=== PATIENT | female | born 1945 | race Caucasian/White ===

== ENCOUNTER 2017-06-18 18:54 | Inpatient (IN) | payer MEDICARE, OTHER ==
[2017-06-18] VITALS (7 sets, daily range): BP systolic 115–161; BP diastolic 60–79; PULSE 75–109; RESP 18–30; TEMP 97.1–97.8; O2SAT 82–98
[~2017-06-18] VITALS: Ht 158.8 cm; Wt 72.2 kg
[2017-06-18] MEDS ORDERED: AMLO10 PO (19:33)
[2017-06-18] MEDS ORDERED: OMEGCAP PO (19:33)
[2017-06-18] MEDS ORDERED: LOSA100T PO (19:33)
[2017-06-18] MEDS ORDERED: VITA1000 PO (19:33)
[2017-06-18] MEDS ORDERED: TIOT1AER INH (19:33)
[2017-06-18] MEDS ORDERED: SIMV20TA PO (19:33)
[2017-06-18] MEDS ORDERED: GREE250C2 (19:33)
[2017-06-18] MEDS ORDERED: METO50TA PO (19:33)
[2017-06-18] MEDS ORDERED: CALC600T25 (19:33)
[2017-06-18] MEDS ORDERED: ASPI81CH CHEW (19:33)
--- NOTE | 2017-06-18 19:40 | PD ---
HPI Chief Complaint: Respiratory Distress Time Seen by Provider: 19:34 Travel History International Travel<30 days: No Contact w/Intl Traveler<30days: No Traveled to known affect area: No History of Present Illness HPI The patient is a 72 year old female who presents to the [facility] emergency department with a history of increased shortness of breath for the last 2 weeks. The patient reports that she does have a history of COPD, however her dyspnea on exertion has been greatly worsened recently. She reports that she has an appointment with her cobol engineer scheduled for tomorrow, however she could not wait for the appointment. She reports that she does check her pulse oximetry at home and with walking across the room her O2 saturation went down as low as 82%. On arrival to this facility by private vehicle patient was noted on triage to have O2 saturations of 86-88% on room air. She denies using any home O2. The patient reports that she quit smoking 12 years ago. She reports that her primary care physician is Dr. Clark. She reports that she's had an increased cough, however it is dry in character. She denies having any fevers or chills associated with this. She denies having any chest pain or pressure, however she reports having tightness in her chest when she tries to take a deep breath. She denies any prior history of congestive heart failure or coronary artery disease. She denies ever having a stress test done previously. On review of systems otherwise, the patient denies any neck pain, abdominal pain, vomiting, diarrhea, urinary symptoms, or neurologic symptoms. [facility] Past Medical History Narrative Medical The patient's past medical history is significant for hypertension, hyperlipidemia, COPD. Past Surgical History Narrative Surgical The patient's past surgical history is significant for an appendectomy, eye surgery. Social History Alcohol Use: No Tobacco Use: No Substance Use: No Allergies-Medications (Allergen,Severity, Reaction): Coded Allergies: No Known Allergies (Unverified , 06/18/17) Reported Meds & Prescriptions Reported Meds & Active Scripts Active Reported Stiolto Respimat Inh (Tiotropium-Olodaterol Inh) 2.5-2.5 Mcg/Act Aero 2 Puff INH DAILY Green Tea (Green Tea Mcconnico Extract) 250 Mg Capsule 500 BID Vitamin D-1000 (Cholecalciferol) 1,000 Unit Tab 2,000 Units PO DAILY [place]-3 Fish Oil/Vitamin (Fish Oil-Cholecalciferol) 1,000-1,000 Mg Cap 1 Cap PO DAILY Calcium (Calcium Carbonate) 600 Mg Calcium (1500 Mg) Tab BID Aspirin 81 Mg Chew 81 Mg CHEW HS Metoprolol Tartrate 50 Mg Tab 50 Mg PO DAILY Norvasc (Amlodipine Besylate) 10 Mg Tab 10 Mg PO HS Simvastatin 20 Mg Tab 20 Mg PO DAILY Losartan (Losartan Potassium) 100 Mg Tab 100 Mg PO DAILY Review of Systems Except as stated in HPI: all other systems reviewed are Neg General / Constitutional: No: Fever Eyes: No: Visual changes HENT: No: Headaches Cardiovascular: Positive: Chest Pain or Discomfort (chest tightness), Dyspnea on exertion Respiratory: Positive: Cough, Shortness of Breath, Wheezing Gastrointestinal: No: Nausea, Vomiting, Diarrhea, Abdominal Pain Genitourinary: No: Dysuria Musculoskeletal: No: Pain Skin: No Rash Neurologic: No: Weakness, Focal Abnormalities, Change in Mentation, Slurred Speech, Sensory Disturbance Psychiatric: No: Depression Endocrine: No: Polydipsia Hematologic/Lymphatic: No: Easy Bruising Physical Exam Narrative General: The patient is a well-developed well-nourished female in no acute distress. The patient is currently on 2 L nasal cannula O2 and saturating 96%. Head and Neck exam: Head is normocephalic atraumatic. Eyes: EOMI, pupils are equal round and reactive to light. Nose: Midline septum with pink mucous membranes Mouth: Dentition unremarkable. Moist mucus membranes. Posterior oropharynx is not erythematous. No tonsillar hypertrophy. Uvula midline. Airway patent. Neck: No palpable lymphadenopathy. No nuchal rigidity. No thyromegaly. Cardiovascular: Regular rate and rhythm without murmurs, gallops, or rubs. Lungs: The patient has decreased breath sounds bilaterally with crackles audible in the right lower lung base. No wheezes or rhonchi audible. Abdomen: Soft, without tenderness to palpation in all 4 quadrants of the abdomen. No guarding, rebound, or rigidity. Normal bowel sounds are audible. No tenderness on palpation of McBurney's point. Extremities: No clubbing, cyanosis, or edema. 2+ pulses in all 4 extremities. No calf tenderness on palpation. Back: No spinous process tenderness to palpation. No costovertebral angle tenderness to palpation. Neurologic Exam: Grossly nonfocal. Skin Exam: No rash noted. Intact skin that is warm and dry. Data Data Last Documented VS Vital Signs Date Time Temp Pulse Resp B/P (MAP) Pulse Ox O2 Delivery O2 Flow Rate FiO2 06/18/17 19:48 95 Nasal Cannula 2.00 06/18/17 19:43 97.8 75 30 143/60 (87) Orders Orders Complete Blood Count With Diff (06/18/17 19:34) Comprehensive Metabolic Panel (06/18/17 19:34) B-Type Natriuretic Peptide (06/18/17 19:34) Act Partial Throm Time (Ptt) (06/18/17 19:34) Prothrombin Time / Inr (Pt) (06/18/17 19:34) Magnesium (Mg) (06/18/17 19:34) Ckmb (Isoenzyme) Profile (06/18/17 19:34) Troponin I (06/18/17 19:34) Urinalysis - C+S If Indicated (06/18/17 19:34) Iv Access Insert/Monitor (06/18/17 19:34) Electrocardiogram (06/18/17 19:34) Ecg Monitoring (06/18/17 19:34) Oximetry (06/18/17 19:34) Oxygen Administration (06/18/17 19:34) Chest, Single Ap (06/18/17 19:34) Sodium Chloride 0.9% Flush (Ns Flush) (06/18/17 19:45) Methylprednisolone So Succ Inj (Solumedr (06/18/17 19:45) Albuterol-Ipratropium Neb (Duoneb Neb) (06/18/17 19:45) Blood Culture (06/18/17 19:40) D-Dimer (06/18/17 19:40) Lactic Acid Sepsis Protocol (06/18/17 19:40) Admit Order (Ed Use Only) (06/18/17 21:11) Labs Laboratory Tests Test 06/18/17 19:35 06/18/17 19:55 White Blood Count 10.0 TH/MM3 Red Blood Count 5.09 MIL/MM3 Hemoglobin 15.5 GM/DL Hematocrit 46.3 % Mean Corpuscular Volume 90.9 FL Mean Corpuscular Hemoglobin 30.4 PG Mean Corpuscular Hemoglobin Concent 33.4 % Red Cell Distribution Width 13.4 % Platelet Count 251 TH/MM3 Mean Platelet Volume 8.6 FL Neutrophils (%) (Auto) 78.4 % Lymphocytes (%) (Auto) 9.7 % Monocytes (%) (Auto) 9.1 % Eosinophils (%) (Auto) 2.5 % Basophils (%) (Auto) 0.3 % Neutrophils # (Auto) 7.8 TH/MM3 Lymphocytes # (Auto) 1.0 TH/MM3 Monocytes # (Auto) 0.9 TH/MM3 Eosinophils # (Auto) 0.2 TH/MM3 Basophils # (Auto) 0.0 TH/MM3 CBC Comment DIFF FINAL Differential Comment Prothrombin Time 10.5 SEC Prothromb Time International Ratio 1.0 RATIO Activated Partial Thromboplast Time 28.8 SEC D-Dimer Quantitative (PE/DVT) 0.31 MG/L FEU Blood Urea Nitrogen 21 MG/DL Creatinine 1.14 MG/DL Random Glucose 104 MG/DL Total Protein 8.9 GM/DL Albumin 4.1 GM/DL Calcium Level 11.2 MG/DL Magnesium Level 1.4 MG/DL Alkaline Phosphatase 89 U/L Aspartate Amino Transf (AST/SGOT) 19 U/L Alanine Aminotransferase (ALT/SGPT) 19 U/L Total Bilirubin 0.5 MG/DL Sodium Level 135 MEQ/L Potassium Level 3.9 MEQ/L Chloride Level 94 MEQ/L Carbon Dioxide Level 33.0 MEQ/L Anion Gap 8 MEQ/L Estimat Glomerular Filtration Rate 47 ML/MIN Total Creatine Kinase 80 U/L Troponin I LESS THAN 0.02 NG/ML B-Type Natriuretic Peptide 11 PG/ML Lactic Acid Level 1.2 mmol/L MDM Medical Decision Making Medical Screen Exam Complete: Yes Emergency Medical Condition: Yes Medical Record Reviewed: Yes Interpretation(s) Last Impressions Chest X-Ray 06/18/171933 Signed Impressions: Service Date/Time: Sunday, June 18, 2017 19:39 - CONCLUSION: No evidence of acute cardiopulmonary disease. Edgard Cruz MD Differential Diagnosis COPD exacerbation, versus new-onset congestive heart failure, versus acute coronary syndrome, versus pulmonary embolism Narrative Course During the course of the patients emergency department visit, the patients history, examination, and differential diagnosis were reviewed with the patient. The patient had IV access obtained and blood work sent for analysis. The patient was on a quality assurance monitor chassis with oximetry and blood pressure monitoring. An ECG was done on arrival. The patient's ECG reveals a sinus rhythm heart rate of 85, no acute ST segment elevation or depression, QRS duration is 89 ms, QTC 391 ms. The patient was initially provided Solu-Medrol 125 mg IV, DuoNeb 2. The patients laboratory studies were reviewed and remarkable for a white count of 10, hemoglobin 15.5, platelets 251 with neutrophils 78.4, monocytes 9.1, CMP is remarkable for sodium of 135, CO2 33, BUN 21, creatinine 1.14, calcium 11.2, magnesium 1.4, CPK 80, troponin I less than 0.02, BNP is 11, PT PTT within normal limits, d-dimer 0.31 decreased the likelihood of pulmonary embolism in this patient with no other significant risk factors. Radiology studies were reviewed and remarkable for a chest x-ray that shows no evidence of acute cardiopulmonary disease. The patients results were discussed with the patient, including the plan of care. I explained that further testing and/ or monitoring is indicated based on the patients history, examination, and/ or laboratory findings. Therefore, I recommended admission for additional evaluation. The patient expressed understanding and was agreeable with this plan. The patient was admitted to the hospital in stable condition and sent to a bed under the care of the [facility]. Physician Communication Physician Communication The patient's case was discussed with Edgard Baeza who did agree to admit the patient to the [facility] group Diagnosis Primary Impression: COPD exacerbation Additional Impression: Hypoxemia Admitting Information Admitting Physician Requests: Admit Addis Malave MD Jun 18, 2017 19:40
[2017-06-18] MEDS: RESP: ALBUTEROL 2.5 MG/IPRATROPIUM 0.5 MG NEB (SCH) INH (19:44)
[2017-06-18] MEDS ORDERED: SODIUM CHLORIDE 0.9% FLUSH 10 ML FLUSH IVF PRN (19:45)
[2017-06-18] MEDS ORDERED: methylPREDNISolone SOD SUCC 125 MG/2 ML VIAL IV PUSH ONE (19:45)
--- NOTE | 2017-06-18 20:05 | RADRPT ---
EXAM DATE/TIME: 06/18/2017 19:39 [place] COMPARISON: No previous studies available for comparison. INDICATIONS : Shortness of breath. MEDICAL HISTORY : Chronic obstructive pulmonary disease. SURGICAL HISTORY : None. ENCOUNTER: Initial ACUITY: 1 day PAIN SCORE: 0/10 LOCATION: Bilateral chest FINDINGS: A single view of the chest demonstrates the lungs to be symmetrically aerated without evidence of mas s, infiltrate or effusion. The cardiomediastinal contours are unremarkable. Osseous structures are intact. CONCLUSION: No evidence of acute cardiopulmonary disease. Edgard Cruz MD on June 18, 2017 at 20:03 Board Certified Radiologist. This report was verified electronically.
[2017-06-18 20:16] LABS: AUTOMATED NEUTROPHIL # 7.8 TH/MM3 (1.8-7.7); BASOPHIL % 0.3 % (0.0-2.0); EOSINOPHIL # 0.2 TH/MM3 (0-0.4); EOSINOPHIL % 2.5 % (0.0-4.0); HEMATOCRIT 46.3 % (35.0-46.0); HEMO FLAGS DIFF FINAL; LYMPH % 9.7 % (9.0-44.0); MEAN CELL VOLUME 90.9 FL (80.0-100.0); MEAN CORPUSCULAR HEMOGLOBIN 30.4 PG (27.0-34.0); MEAN CORPUSCULAR HGB CONC 33.4 % (32.0-36.0); MONO % 9.1 % (0.0-8.0); NEUT % 78.4 % (16.0-70.0); PLATELET COUNT 251 TH/MM3 (150-450); RED BLOOD COUNT 5.09 MIL/MM3 (4.00-5.30); RED CELL DISTRIBUTION WIDTH 13.4 % (11.6-17.2)
[2017-06-18 20:26] LABS: APTT (PATIENT) 28.8 SEC (24.3-30.1); PROTHROMBIN TIME - PATIENT 10.5 SEC (9.8-11.6)
[2017-06-18 20:39] LABS: ALT (GPT) 19 U/L (10-53); ANION GAP 8 MEQ/L (5-15); AST (GOT) 19 U/L (15-37); CHLORIDE 94 MEQ/L (98-107); GLOMERULAR FILTRATION RATE 47 ML/MIN (>89); MAGNESIUM 1.4 MG/DL (1.5-2.5); POTASSIUM 3.9 MEQ/L (3.5-5.1); SODIUM (NA) 135 MEQ/L (136-145)
[2017-06-18 20:46] LABS: ALKALINE PHOSPHATASE 89 U/L (45-117); BLOOD UREA NITROGEN 21 MG/DL (7-18); TOTAL BILIRUBIN ADULT 0.5 MG/DL (0.2-1.0)
[2017-06-18 20:50] LABS: CREATINE KINASE 80 U/L (26-192)
[2017-06-18] MEDS ORDERED: SODIUM CHLORIDE 0.9% FLUSH 10 ML FLUSH IV FLUSH PRN (22:15)
[2017-06-18] MEDS ORDERED: RESP: ALBUTEROL 2.5 MG/3 ML NEB (PRN) INH (22:15)
[2017-06-18] MEDS: SODIUM CHLOR 0.9% 1000 ML INJ 1,000 ML IV SCH (22:30)
[2017-06-18] MEDS: HEPARIN SODIUM - SQ 10,000 UNITS/ML VIAL SQ SCH (23:15)
[2017-06-18] MEDS: MAGNESIUM SULFATE 1 GM PREMIX 100 ML IV SCH ×2 (23:16→23:30)
[2017-06-18] MEDS ORDERED: ZOLPIDEM TARTRATE 5 MG TAB PO PRN (23:30)
[2017-06-19] VITALS (8 sets, daily range): BP systolic 107–119; BP diastolic 58–65; PULSE 78–107; RESP 16–22; TEMP 96.1–98; O2SAT 94–98
[2017-06-19] MEDS: ENALAPRIL MALEATE 5 MG TAB PO SCH ×2 (00:02→08:34)
[2017-06-19] MEDS: methylPREDNISolone SOD SUCC 125 MG/2 ML VIAL IV PUSH SCH ×4 (02:01→20:08)
[2017-06-19] MEDS: RESP: ALBUTEROL 2.5 MG/IPRATROPIUM 0.5 MG NEB (SCH) INH ×4 (03:42→21:12)
[2017-06-19 07:07] LABS: BICARBONATE 30.7 MEQ/L (21.0-32.0); MAGNESIUM 1.9 MG/DL (1.5-2.5); POTASSIUM 4.1 MEQ/L (3.5-5.1)
--- NOTE | 2017-06-19 07:41 | EKG ---
Date Performed: 06/18/2017 Time Performed: 19:32:13 PTAGE: 72 years EKG: Sinus rhythm POSSIBLE RIGHT ATRIAL ENLARGEMENT BORDERLINE ECG PREVIOUS TRACING : 06/18/2017 19.31 - not provided for review DOCTOR: Beverly Hines Interpretating Date/Time 06/19/2017 07:39:18
[2017-06-19] MEDS: FAMOTIDINE 20 MG TAB PO SCH ×2 (08:33→20:06)
[2017-06-19] MEDS: SODIUM CHLORIDE 0.9% FLUSH 10 ML FLUSH IV FLUSH SCH ×2 (08:41→20:06)
[2017-06-19] MEDS: SODIUM CHLOR 0.9% 1000 ML INJ 1,000 ML IV SCH ×2 (08:41→22:18)
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
[2017-06-19] MEDS ORDERED: INFLUENZA VIRUS VACCINE (QUADRIVALENT) 0.5 ML SYR IM ONE (09:00)
[2017-06-19] MEDS ORDERED: MAGNESIUM HYDROXIDE SUSP 30 ML CUP PO PRN (09:45)
[2017-06-19] MEDS: DOCUSATE SODIUM 50 MG/SENNA 8.6 MG TAB PO SCH (10:45)
[2017-06-19] MEDS ORDERED: BISACODYL 10 MG SUPP RECTAL ONE (10:45)
[2017-06-19] MEDS: HEPARIN SODIUM - SQ 10,000 UNITS/ML VIAL SQ SCH ×2 (11:19→23:45)
--- NOTE | 2017-06-19 16:53 | HHI.PR ---
Subjective Interval History Alert, oriented, breathing better, no pain, mild dyspnea on exertion, mild cough , no fever, no sputum Review of Systems Constitutional Constitutional Remarks 10 systems reviewed and negative except for the above Vitals/Results Intake & Output 06/19/17 06/19/17 06/20/17 15:00 23:00 07:00 Intake Total 820 ml 350 ml Balance 820 ml 350 ml Intake Oral 820 ml IV Total 350 ml # Voids 6 # Bowel Movements 2 Vital Signs Vital Signs Date Time Temp Pulse Resp B/P (MAP) Pulse Ox O2 Delivery O2 Flow Rate FiO2 06/19/17 16:30 96.7 107 22 116/58 (77) 95 06/19/17 11:32 96.1 100 18 107/59 (75) 95 06/19/17 08:02 97 Nasal Cannula 2.00 06/19/17 08:00 96.5 99 18 108/60 (76) 96 06/19/17 04:00 97.0 96 18 110/59 (76) 94 06/18/17 23:00 97.1 94 18 115/61 (79) 97 06/18/17 22:32 06/18/17 21:42 102 20 135/69 (91) 96 Nasal Cannula 2.00 06/18/17 19:48 95 Nasal Cannula 2.00 06/18/17 19:43 97.8 75 30 143/60 (87) 98 Nasal Cannula 2.00 06/18/17 19:39 30 98 2.00 06/18/17 19:39 99 Nasal Cannula 2.00 06/18/17 19:22 97 20 141/64 (89) 98 06/18/17 18:56 97.8 109 24 161/79 (106) 82 Room Air CBC/BMP: 06/18/17 1935 06/19/17 0602 Lab Results Laboratory Tests Test 06/18/17 19:35 06/18/17 19:55 06/19/17 06:02 White Blood Count 10.0 TH/MM3 Red Blood Count 5.09 MIL/MM3 Hemoglobin 15.5 GM/DL Hematocrit 46.3 % Mean Corpuscular Volume 90.9 FL Mean Corpuscular Hemoglobin 30.4 PG Mean Corpuscular Hemoglobin Concent 33.4 % Red Cell Distribution Width 13.4 % Platelet Count 251 TH/MM3 Mean Platelet Volume 8.6 FL Neutrophils (%) (Auto) 78.4 % Lymphocytes (%) (Auto) 9.7 % Monocytes (%) (Auto) 9.1 % Eosinophils (%) (Auto) 2.5 % Basophils (%) (Auto) 0.3 % Neutrophils # (Auto) 7.8 TH/MM3 Lymphocytes # (Auto) 1.0 TH/MM3 Monocytes # (Auto) 0.9 TH/MM3 Eosinophils # (Auto) 0.2 TH/MM3 Basophils # (Auto) 0.0 TH/MM3 CBC Comment DIFF FINAL Differential Comment Prothrombin Time 10.5 SEC Prothromb Time International Ratio 1.0 RATIO Activated Partial Thromboplast Time 28.8 SEC D-Dimer Quantitative (PE/DVT) 0.31 MG/L FEU Blood Urea Nitrogen 21 MG/DL 25 MG/DL Creatinine 1.14 MG/DL 0.99 MG/DL Random Glucose 104 MG/DL 152 MG/DL Total Protein 8.9 GM/DL Albumin 4.1 GM/DL Calcium Level 11.2 MG/DL 9.6 MG/DL Magnesium Level 1.4 MG/DL 1.9 MG/DL Alkaline Phosphatase 89 U/L Aspartate Amino Transf (AST/SGOT) 19 U/L Alanine Aminotransferase (ALT/SGPT) 19 U/L Total Bilirubin 0.5 MG/DL Sodium Level 135 MEQ/L 137 MEQ/L Potassium Level 3.9 MEQ/L 4.1 MEQ/L Chloride Level 94 MEQ/L 100 MEQ/L Carbon Dioxide Level 33.0 MEQ/L 30.7 MEQ/L Anion Gap 8 MEQ/L 6 MEQ/L Estimat Glomerular Filtration Rate 47 ML/MIN 55 ML/MIN Total Creatine Kinase 80 U/L Troponin I LESS THAN 0.02 NG/ML B-Type Natriuretic Peptide 11 PG/ML Lactic Acid Level 1.2 mmol/L Microbiology Microbiology 06/18/17 Aerobic Blood Culture - Preliminary, Resulted NO GROWTH IN 1 DAY 06/18/17 Anaerobic Blood Culture - Preliminary, Resulted NO GROWTH IN 1 DAY 06/18/17 Aerobic Blood Culture - Preliminary, Resulted NO GROWTH IN 1 DAY 06/18/17 Anaerobic Blood Culture - Preliminary, Resulted NO GROWTH IN 1 DAY Physical Exam General General Appearance: Well Developed, Well Nourished, Comfortable Eyes Eye Exam: Pupils Reactive Ears & Nose Ears & Nose Exam: Nasal Mucosa [place] Throat Throat Exam: Oral Mucosa [place] & Moist Neck Neck Exam: Trachea Midline Pulmonary Resp Exam: Breath Sounds Equal, Crackles, Rhonchi Cardiology CV Exam: Tachycardia CV Remarks sinus tachycardia Gastrointestinal/Abdomen GI Exam: Soft, Non-Tender, Bowel Sounds Present Musculoskeletal MS Exam: Normal Tone Neurologic Neuro Exam: Awake, Oriented, Speech Clear Psychiatric Psych Exam: Appropriate Responses VTE Prophylaxis VTE Prophylaxis Meds: Heparin Assessment/Plan Assessment/Plan Assessment COPD exacerbation Sinus tachycardia Uncontrolled hypertension on arrival, improving Hypomagnesemia Mild hyponatremia Hyperglycemia, unclear if related to steroids Acute kidney injury versus dehydration Borderline hypergammaglobulinemia Management Continue steroids Continue IV fluids Bronchodilators Telemetry Continue home medications Building Construction Contractor following Follow renal function Follow electrolytes Hemoglobin A1c DVT prophylaxis Possibly switch to oral steroids tomorrow Possible home tomorrow Discussed with patient Discussed with nurse 35 minutes IMPRESSION 1. COPD exacerbation. 2. Hypertension. 3. Hyperlipidemia. 4. Hyponatremia. 5. Chronic kidney disease, appears to be stage III. 6. Hypercalcemia. 7. Hypomagnesemia. Gordo Love MD Jun 19, 2017 16:53
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
[2017-06-20] VITALS (7 sets, daily range): BP systolic 101–121; BP diastolic 57–69; PULSE 88–110; RESP 16–18; TEMP 96.2–97.4; O2SAT 92–97
[2017-06-20] MEDS: methylPREDNISolone SOD SUCC 125 MG/2 ML VIAL IV PUSH SCH ×2 (02:26→08:36)
[2017-06-20] MEDS: RESP: ALBUTEROL 2.5 MG/IPRATROPIUM 0.5 MG NEB (SCH) INH ×4 (02:58→21:28)
[2017-06-20] MEDS: SODIUM CHLORIDE 0.9% FLUSH 10 ML FLUSH IV FLUSH SCH ×2 (08:36→20:57)
[2017-06-20] MEDS: DOCUSATE SODIUM 50 MG/SENNA 8.6 MG TAB PO SCH (08:44)
[2017-06-20] MEDS: FAMOTIDINE 20 MG TAB PO SCH ×2 (08:45→20:55)
[2017-06-20] MEDS: ENALAPRIL MALEATE 5 MG TAB PO SCH (08:48)
--- NOTE | 2017-06-20 10:55 | HHI.PR ---
Subjective Subjective Remarks up in shower alert, oriented No SOB HR 110 with increased activity Refused Vasotec according to med rec. (Angely Lu) Review of Systems Constitutional Constitutional Remarks 10 point ROS done SOB controlled. (Angely Lu) Vitals/Results Vital Signs Vital Signs Date Time Temp Pulse Resp B/P (MAP) Pulse Ox O2 Delivery O2 Flow Rate FiO2 06/20/17 07:26 96.2 110 18 121/69 (86) 92 06/20/17 03:01 95 Nasal Cannula 2.00 06/19/17 23:35 96.4 102 16 116/60 (78) 94 06/19/17 21:15 97 Nasal Cannula 2.00 06/19/17 20:45 98.0 78 16 119/65 (83) 98 06/19/17 16:30 96.7 107 22 116/58 (77) 95 06/19/17 11:32 96.1 100 18 107/59 (75) 95 (Angely Lu) CBC/BMP: 06/18/17193406/19/17 0602 Imaging Remarks Last Impressions Chest X-Ray 06/18/171933 Signed Impressions: Service Date/Time: Sunday, June 18, 2017 19:39 - CONCLUSION: No evidence of acute cardiopulmonary disease. Edgard Cruz MD Current Medications Administered Medications Medications (Trade) Dose Ordered Sig/Anabell Route PRN Reason Start Time Stop Time Status Last Admin Dose Admin Sodium Chloride (NS Flush) 2 ml BID IV FLUSH 06/19/17 09:00 06/20/17 08:36 Albuterol/ Ipratropium (Duoneb Neb) 1 ampule Q6HR NEB INH 06/19/17 04:00 06/20/17 02:58 Methylprednisolone Sodium Succinate (SoluMEDROL INJ) 60 mg Q6H IV PUSH 06/19/17 02:00 06/20/17 08:36 Heparin Sodium (Porcine) (Heparin Inj) 5,000 units Q12H SQ 06/18/17 23:00 06/19/17 23:45 Sodium Chloride 1,000 ml @ 50 mls/hr Q20H IV 06/18/17 22:30 06/19/17 08:41 Senna/Docusate Sodium (Steffi-Colace) 2 tab DAILY PO 06/19/17 10:45 06/20/17 08:44 (Angely Lu) Physical Exam General General Appearance: Well Developed, Well Nourished Appearance Remarks slim (Angely LuP) Eyes Eye Exam: Pupils Reactive (Angely LuP) Ears & Nose Ears & Nose Exam: Nasal Mucosa [place] (Angely Lu ASSISTIVE TECHNOLOGY TRAINER) Throat Throat Exam: Oral Mucosa [place] & Moist (Angely Lu ASSISTIVE TECHNOLOGY TRAINER) Neck Neck Exam: Trachea Midline (Angely Lu ASSISTIVE TECHNOLOGY TRAINER) Pulmonary Resp Exam: Breath Sounds Equal, Rhonchi (occasional), Diminished Breath Sounds (improved) (Angely LuP) Cardiology CV Exam: Tachycardia CV Remarks 110 (Angely Lu ASSISTIVE TECHNOLOGY TRAINER) Gastrointestinal/Abdomen GI Exam: Soft, Non-Tender, Bowel Sounds Present (Angely Lu ASSISTIVE TECHNOLOGY TRAINER) Musculoskeletal MS Exam: Normal Tone (Angely LuP) Neurologic Neuro Exam: Awake, Oriented, Speech Clear (Angely Lu ASSISTIVE TECHNOLOGY TRAINER) Psychiatric Psych Exam: Appropriate Responses (Angely LuP) VTE Prophylaxis VTE Prophylaxis Meds: Heparin (Angely LuP) Assessment/Plan Assessment/Plan COPD exacerbation. stablized with O2, IV steroids and monitor blood sugar after off steroids, transition to PO today, duonebs. Denies any SOB or acute pain. , IVF off , patient in shower, nutrition fair, appreciate pulmonary input and plan of care. Hypertension. initially uncontrolled, improved, continue medical management , Vasotec, but refused med this am. HR 110 with activity, taking shower without any distress. Continue telemetry. Hyperlipidemia. medical management Hyponatremia., resolved. Chronic kidney disease, appears to be stage III. BUN mild elevation, probable her baseline Hypercalcemia. resolved Hypomagnesemia. resolved D/W nurse D/W patient D/W Dr. Love, seen on his behalf DC planning possible today, review meds and her cooperation to take. (Angely Lu) Assessment/Plan seen, examined by myself, Dr Love, today Discussed with patient Frequent cough Tachycardia with activity Waiting to see parking enforcement officer today Walk test ordered Possible discharge later today or tomorrow Continue oral steroids Discussed with mid level provider The exam, history, and the medical decision-making described in the above note were completed with the assistance of the mid-level provider. I reviewed the findings presented. I attest that I had a [id number] encounter with the patient on the same day, and personally performed and documented my assessment and findings in the medical record. (Gordo Love MD) Angely Lu Jun 20, 2017 10:55 Gordo Love MD Jun 20, 2017 14:59
[2017-06-20] MEDS: HEPARIN SODIUM - SQ 10,000 UNITS/ML VIAL SQ SCH ×2 (11:14→23:14)
[2017-06-20 13:45] LABS: AUTOMATED NEUTROPHIL # 19.3 TH/MM3 (1.8-7.7); BASOPHIL % 0.1 % (0.0-2.0); HEMATOCRIT 40.4 % (35.0-46.0); HEMO FLAGS DIFF FINAL; LYMPHOCYTE # 0.4 TH/MM3 (1.0-4.8); MEAN CORPUSCULAR HEMOGLOBIN 30.4 PG (27.0-34.0); MEAN CORPUSCULAR HGB CONC 33.4 % (32.0-36.0); MONO % 5.2 % (0.0-8.0); NEUT % 92.7 % (16.0-70.0); PLATELET COUNT 232 TH/MM3 (150-450); RED BLOOD COUNT 4.44 MIL/MM3 (4.00-5.30); RED CELL DISTRIBUTION WIDTH 13.8 % (11.6-17.2); WHITE BLOOD COUNT 20.8 TH/MM3 (4.0-11.0)
[2017-06-20 14:00] LABS: ANION GAP 9 MEQ/L (5-15); AST (GOT) 22 U/L (15-37); BLOOD UREA NITROGEN 26 MG/DL (7-18); CHLORIDE 94 MEQ/L (98-107); GLOMERULAR FILTRATION RATE 52 ML/MIN (>89); SODIUM (NA) 129 MEQ/L (136-145)
[2017-06-20 14:05] LABS: ALKALINE PHOSPHATASE 69 U/L (45-117); ALT (GPT) 19 U/L (10-53); INDIRECT BILIRUBIN 0.2 MG/DL (0.0-0.8); TOTAL BILIRUBIN ADULT 0.3 MG/DL (0.2-1.0)
[2017-06-20] MEDS ORDERED: PRED20 PO (15:27)
[2017-06-20] MEDS ORDERED: ALBU0.08 INH (15:27)
[2017-06-20] MEDS ORDERED: Ceftin PO (15:37)
[2017-06-20 17:27] LABS: HEMOGLOBIN A1a 1.6 %; HEMOGLOBIN A1b 1.9 %; HEMOGLOBIN Ao 83.3 %; HEMOGLOBIN LA1C 2.7 %; HEMOGLOBIN P3 6.1 %
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
[2017-06-20] MEDS: SODIUM CHLOR 0.9% 1000 ML INJ 1,000 ML IV SCH (18:44)
[2017-06-20] MEDS: predniSONE 20 MG TAB PO SCH (20:55)
[2017-06-21] VITALS: BP 108/42; PULSE 112; RESP 18; TEMP 96.8; O2SAT 96
[2017-06-21] MEDS: RESP: ALBUTEROL 2.5 MG/IPRATROPIUM 0.5 MG NEB (SCH) INH ×2 (04:00→09:51)
--- NOTE | 2017-06-21 08:13 | HHI.PR ---
Subjective Subjective Remarks resting in bed alert, oriented No SOB at rest, but failed walk test Tachycardia at rest, patient states she usually takes her Vasotec at night, no dose was given yesterday Patient also states she takes Lopressor and losartan at home. Planning to discharge today (Angely uL) Review of Systems Constitutional Constitutional: Weakness (mild) Constitutional Remarks 10 point ROS done SOB controlled. (Angely Lu) Cardiology CV Remarks Tachycardia (Angely Lu) Musculoskeletal MS: Weakness (Angely Lu) Vitals/Results Vital Signs Vital Signs Date Time Temp Pulse Resp B/P (MAP) Pulse Ox O2 Delivery O2 Flow Rate FiO2 06/21/17 00:00 96.8 112 18 108/42 (64) 96 06/20/17 21:30 95 Nasal Cannula 1.50 06/20/17 20:02 97.4 106 16 118/57 (77) 94 06/20/17 17:06 97 Nasal Cannula 2.00 06/20/17 16:33 2.00 06/20/17 16:00 97.3 88 18 101/61 (74) 94 06/20/17 11:39 96.6 97 18 115/57 (76) 97 (Angely Lu) CBC/BMP: 06/20/17 1250 06/20/17 1250 Lab Results Laboratory Tests Test 06/20/17 12:50 White Blood Count 20.8 TH/MM3 Red Blood Count 4.44 MIL/MM3 Hemoglobin 13.5 GM/DL Hematocrit 40.4 % Mean Corpuscular Volume 91.0 FL Mean Corpuscular Hemoglobin 30.4 PG Mean Corpuscular Hemoglobin Concent 33.4 % Red Cell Distribution Width 13.8 % Platelet Count 232 TH/MM3 Mean Platelet Volume 8.5 FL Neutrophils (%) (Auto) 92.7 % Lymphocytes (%) (Auto) 2.0 % Monocytes (%) (Auto) 5.2 % Eosinophils (%) (Auto) 0.0 % Basophils (%) (Auto) 0.1 % Neutrophils # (Auto) 19.3 TH/MM3 Lymphocytes # (Auto) 0.4 TH/MM3 Monocytes # (Auto) 1.1 TH/MM3 Eosinophils # (Auto) 0.0 TH/MM3 Basophils # (Auto) 0.0 TH/MM3 CBC Comment DIFF FINAL Differential Comment Blood Urea Nitrogen 26 MG/DL Creatinine 1.05 MG/DL Random Glucose 103 MG/DL Total Protein 7.5 GM/DL Albumin 3.6 GM/DL Calcium Level 9.0 MG/DL Phosphorus Level 1.5 MG/DL Magnesium Level 2.0 MG/DL Alkaline Phosphatase 69 U/L Aspartate Amino Transf (AST/SGOT) 22 U/L Alanine Aminotransferase (ALT/SGPT) 19 U/L Total Bilirubin 0.3 MG/DL Direct Bilirubin 0.1 MG/DL Sodium Level 129 MEQ/L Potassium Level 4.0 MEQ/L Chloride Level 94 MEQ/L Carbon Dioxide Level 26.0 MEQ/L Anion Gap 9 MEQ/L Estimat Glomerular Filtration Rate 52 ML/MIN Hemoglobin A1c 5.4 % Indirect Bilirubin 0.2 MG/DL Imaging Remarks Last Impressions Chest X-Ray 06/18/171933 Signed Impressions: Service Date/Time: Sunday, June 18, 2017 19:39 - CONCLUSION: No evidence of acute cardiopulmonary disease. Edgard Cruz MD (Angely Lu M. BULK STATION AGENT) Physical Exam General General Appearance: Well Developed, Well Nourished, Comfortable (at rest) Appearance Remarks slim (Angely Lu M. BULK STATION AGENT) Eyes Eye Exam: Pupils Reactive (Angely Lu M. BULK STATION AGENT) Ears & Nose Ears & Nose Exam: Nasal Mucosa [place] (Angely Lu M. BULK STATION AGENT) Throat Throat Exam: Oral Mucosa [place] & Moist (Angely Lu M. BULK STATION AGENT) Neck Neck Exam: Trachea Midline (Angely Lu M. BULK STATION AGENT) Pulmonary Resp Exam: Breath Sounds Equal, Rhonchi (occasional), Diminished Breath Sounds (improved) ([place],Angely M. BULK STATION AGENT) Cardiology CV Exam: Tachycardia CV Remarks 110 (Nelly Luan M. BULK STATION AGENT) Gastrointestinal/Abdomen GI Exam: Soft, Non-Tender, Bowel Sounds Present (Angely Lu M. BULK STATION AGENT) Musculoskeletal MS Exam: Normal Tone (Angely Lu M. BULK STATION AGENT) Integumentary Skin Exam: Warm, Dry, Intact (Angely Lu M. BULK STATION AGENT) Extremeties Extremities Exam: No Edema (Angely Lu) Neurologic Neuro Exam: Awake, Oriented, Speech Clear, Moving All Extremities (Angely Lu) Psychiatric Psych Exam: Appropriate Responses (Angely Lu) VTE Prophylaxis VTE Prophylaxis Meds: Heparin (Angely Lu) Assessment/Plan Assessment/Plan Labs reviewed, leukocytosis probably secondary to steroids, acute kidney injury versus chronic kidney disease, d-dimer 0.31 COPD exacerbation. stablized with O2, IV steroids and monitor blood sugar after off steroids, transition to PO today, duonebs. Denies any SOB or acute pain. , IVF off , pulmonary visit pending before discharge tentative today Patient failed walk test yesterday with decreased O2 sats even at rest. Case management consult for oxygen set up for home use appreciate pulmonary input and plan of care. Hypertension. initially uncontrolled, improved, continue medical management , Vasotec, but refused med this am., States she usually takes it at night but did not get it at all for the past 2 days. Restarted Lopressor 25 mg by mouth twice a day to monitor blood pressure, was taking 50 mg daily at home Continue telemetry and monitor for heart rate less than 100 Hyperlipidemia. medical management Hyponatremia., resolved. Chronic kidney disease, appears to be stage III. probable her baseline Hypercalcemia. resolved Hypomagnesemia. resolved D/W nurse D/W patient D/W Dr. herrera, seen on his behalf DC planning possible today, restarted Lopressor for tachycardia her home meds, hates management consult to assist with home O2 and home health (Angely Lu) Assessment/Plan pt is seen & Examined chart reviewed feels much better breathing is better currently sitting without O2 will have RN check RA o2 sat again ready to go home d/w angely d/w RN medically stable for d/c ok to d/c home today (Hever Herrera MD) Angely Lu Jun 21, 2017 08:13 Hever Herrera MD Jun 21, 2017 10:26
[2017-06-21] MEDS: FAMOTIDINE 20 MG TAB PO SCH (09:00)
[2017-06-21] MEDS: DOCUSATE SODIUM 50 MG/SENNA 8.6 MG TAB PO SCH (09:00)
--- NOTE | 2017-06-21 09:09 | HHI.FF ---
Face to Face Verification Diagnosis: (1) COPD (chronic obstructive pulmonary disease) Home Health Nursing Order: Oxygen administration education Nursing assessment with vital signs I have seen patient Brynn Wild on 06/21/17. My clinical findings support the need for the requested home health care services because: Patient has SOB Deconditioned w/ increased weakness I certify that my clinical findings support that this patient is homebound because: Hx COPD- exertion dyspnea/weakness (need home o2 set up) Angely Lu Jun 21, 2017 09:09
[2017-06-21] MEDS ORDERED: METOPROLOL TARTRATE 25 MG TAB PO SCH (09:15)
[2017-06-21 09:47] VITALS: BP 120/63; PULSE 105; RESP 20; TEMP 97.1; O2SAT 93
[2017-06-21] MEDS: predniSONE 20 MG TAB PO SCH (09:48)
[2017-06-21] MEDS: SODIUM CHLORIDE 0.9% FLUSH 10 ML FLUSH IV FLUSH SCH (09:49)
[2017-06-21 09:56] VITALS: O2SAT 100
[2017-06-21] MEDS: HEPARIN SODIUM - SQ 10,000 UNITS/ML VIAL SQ SCH (11:00)
[2017-06-21] MEDS ORDERED: OXYGENDME NAS.CANULA (12:33)
[2017-06-21 13:20] VITALS: BP 116/53; PULSE 88; RESP 16; TEMP 96.2; O2SAT 93
[2017-06-21 15:16] LABS: BACTERIA, URINE RARE /hpf; BLOOD, URINE NEG (NEG); COMMENT (UR) CULT NOT INDICATED; CULTURE IF INDICATED CULT NOT INDICATED; GLUCOSE,URINE NEG (NEG); KETONE, URINE NEG (NEG); NITRITE,URINE NEG (NEG); PH, URINE 6.5 (5.0-8.5); SQUAMOUS EPITHELIAL CELL URINE <1 /hpf (0-5); URINE COLOR LIGHT-YELLOW (YELLW/STRAW)
[2017-06-21] MEDS ORDERED: ENALAPRIL MALEATE 5 MG TAB PO SCH (21:00)
[2017-06-21] MEDS ORDERED: FAMOTIDINE 20 MG TAB PO SCH (21:00)
--- NOTE | 2017-06-21 23:11 | MD ---
cc: Maurizio CORTEZ M.D. ADMISSION DATE: 06/18/2017 DISCHARGE DATE: 06/21/2017 HISTORY Ms. Ann is a 71-year-old white female known to me with COPD, pulmonary functions in the range of 35-40%. She had been stable at home on Stiolto with occasional albuterol but presented on 06/18 with increasing shortness of breath, cough and congestion. She was admitted. Chest x-ray was unremarkable. Blood cultures were negative and she was placed on bronchodilators, corticosteroids and antibiotics and has done well. An O2 walk test is pending today. She may need home oxygen. She was just switched to oral therapy today including 20 milligrams of prednisone twice a day, continued on aerosol nebulizers. PHYSICAL EXAMINATION LUNGS: Her physical exam today lungs are minimally congested. VITAL SIGNS: She is afebrile. Her pulse is 90-100, respirations are 16-18 and her O2 sat on 2 liters is 97. CHEST: Reveals minimal congestion. HEART: No harsh murmur and no edema. I spoke to Dr. Love. The patient is going to do a walk test to see if she needs home oxygen, if so I would suggest keeping her for 24 hours since she just switched over to oral therapy today. However, if she does the walk test and her O2 sats are good and does not need home O2 I think she could go home on a tapering course of prednisone 5 days of an oral antibiotic as she probably did have a bronchitis and then she will continue her Stiolto and albuterol which she has at home. I will see her back in the office next week and she knows she can call if problems arise prior to that. Maurizio Cortez MD RSKary/ALEXIS /3:16 PM /10:53 PM
== END 2017-06-21 15:39 | disposition home or self-care (01) | DRG 191 ==
LOC: NEPC 18:54 → NEDA 21:14 → N06B 22:25
PROVIDERS: ADMIT Specialist; ATTEND Specialist
DX: J44.1 Chronic obstructive pulmonary disease with (acute) exacerbation (principal); E87.1 Hypo-osmolality and hyponatremia; N18.3 Chronic kidney disease, stage 3 (moderate); E78.5 Hyperlipidemia, unspecified; Z87.891 Personal history of nicotine dependence; G47.00 Insomnia, unspecified; E83.52 Hypercalcemia; E83.42 Hypomagnesemia; I12.9 Hypertensive chronic kidney disease with stage 1 through stage 4 chronic kidney disease, or unspecified chronic kidney disease
CPT/HCPCS: 71010; 80048; 80053; 80076; 81001; 82550; 83036; 83605; 83735; 83880; 84100; 84484; 85025; 85379; 85610; 85730; 87040; 93005; 94620; 94640; 94664; 96374; J1644; J2930; J3475; J7030; J7512

== ENCOUNTER 2017-07-17 14:50 | Inpatient (IN) | payer MEDICARE, OTHER ==
[~2017-07-17] VITALS: Ht 157.5 cm; Wt 77.3 kg
[2017-07-17] VITALS (7 sets, daily range): BP systolic 139–146; BP diastolic 65–75; PULSE 67–97; RESP 18–36; TEMP 97.9–98.4; O2SAT 92–99
[~2017-07-17 14:50] MED LIST: ALBU0.08 INH; AMLO10 PO; ASPI81CH CHEW; CALC600T25; Ceftin PO; GREE250C2; LOSA100T PO; METO50TA PO; OMEGCAP PO; OXYGENDME NAS.CANULA; PRED20 PO; SIMV20TA PO; TIOT1AER INH; VITA1000 PO
[2017-07-17] MEDS ORDERED: SODIUM CHLORIDE 0.9% FLUSH 10 ML FLUSH IVF PRN (15:30)
[2017-07-17] MEDS: RESP: ALBUTEROL 2.5 MG/IPRATROPIUM 0.5 MG NEB (SCH) INH ×2 (15:43→20:17)
[2017-07-17] MEDS ORDERED: methylPREDNISolone SOD SUCC 125 MG/2 ML VIAL IV PUSH ONE (15:45)
[2017-07-17 16:02] LABS: AUTOMATED NEUTROPHIL # 6.8 TH/MM3 (1.8-7.7); BASOPHIL % 0.1 % (0.0-2.0); EOSINOPHIL % 0.4 % (0.0-4.0); HEMO FLAGS DIFF FINAL; LYMPH % 3.5 % (9.0-44.0); LYMPHOCYTE # 0.3 TH/MM3 (1.0-4.8); MEAN CELL VOLUME 90.2 FL (80.0-100.0); MEAN CORPUSCULAR HEMOGLOBIN 30.5 PG (27.0-34.0); MEAN CORPUSCULAR HGB CONC 33.8 % (32.0-36.0); MONO % 10.6 % (0.0-8.0); NEUT % 85.4 % (16.0-70.0); PLATELET COUNT 226 TH/MM3 (150-450); RED BLOOD COUNT 4.32 MIL/MM3 (4.00-5.30)
--- NOTE | 2017-07-17 16:05 | PD ---
HPI Chief Complaint: Respiratory Symptoms Time Seen by Provider: 15:10 Travel History International Travel<30 days: No Contact w/Intl Traveler<30days: No Traveled to known affect area: No History of Present Illness HPI 72-year-old female complains of shortness of breath. Patient states that the symptoms started yesterday. Patient complains of generalized malaise and weakness pressure lower extremity since yesterday also. Patient also complains of increasing lower extremity swelling since yesterday. Patient denies any headache. Patient states that she had blurring vision from the left eye for a short period of time this morning. Patient states that the blurred vision resolved completely since then. Patient denies any neck pain. Patient denies any chest pain. Patient states that she has shortness of breath since yesterday and is worse today. Patient denies abdominal pain. Patient denies any nausea vomiting diarrhea. Patient complained of generalized weakness and lower extremity. Patient states that she is unable to ambulate much today secondary to weakness. Patient has history COPD. Patient was admitted June 18 and discharge June 20 for acute exacerbation COPD. Patient was given IV Solu-Medrol without any problem. Patient states that she had a rash from prednisone by mouth given during past admission. Patient's is on home O2 2 L nasal cannula. Patient uses nebulizer treatment at home about 3 times a day. Patient did not use her nebulizer treatment today at home. PFSH Past Medical History Cancer: No Cardiovascular Problems: Yes (HTN) High Cholesterol: Yes Congestive Heart Failure: No COPD: Yes Coronary Artery Disease: No Diabetes: No Diminished Hearing: No Endocrine: No Genitourinary: No Hypertension: Yes Kidney Stones: Yes Musculoskeletal: No Neurologic: No Psychiatric: No Reproductive: No Respiratory: Yes (COPD) Tetanus Vaccination: Unknown ?: Not Past Surgical History Abdominal Surgery: Yes (APPY) Appendectomy: Yes Family History Family Hypercholesterolemia: Yes Social History Alcohol Use: No Tobacco Use: No Substance Use: No Allergies-Medications (Allergen,Severity, Reaction): Coded Allergies: prednisone (Verified Allergy, Mild, Rash, 07/17/17) Reported Meds & Prescriptions Reported Meds & Active Scripts Active Oxygen (O2) Device Liter KIYA.CANULA DIRECTED PRN Oxygen Concentrator Portable Gaseous 2 L/min via Nasal Canula prn For 12 months Albuterol Neb (Albuterol Sulfate) 2.5 Mg/3 Ml Neb 2.5 Mg INH Q2HR NEB PRN MDD 4 30 Days As directed Reported Stiolto Respimat Inh (Tiotropium-Olodaterol Inh) 2.5-2.5 Mcg/Act Aero 2 Puff INH DAILY Green Tea (Green Tea [place] Extract) 250 Mg Capsule 500 BID Vitamin D-1000 (Cholecalciferol) 1,000 Unit Tab 2,000 Units PO DAILY [place]-3 Fish Oil/Vitamin (Fish Oil-Cholecalciferol) 1,000-1,000 Mg Cap 1 Cap PO DAILY Calcium (Calcium Carbonate) 600 Mg Calcium (1500 Mg) Tab BID Aspirin 81 Mg Chew 81 Mg CHEW HS Metoprolol Tartrate 50 Mg Tab 50 Mg PO DAILY Norvasc (Amlodipine Besylate) 10 Mg Tab 10 Mg PO HS Simvastatin 20 Mg Tab 20 Mg PO DAILY Losartan (Losartan Potassium) 100 Mg Tab 100 Mg PO DAILY Review of Systems General / Constitutional: No: Fever Eyes: No: Visual changes HENT: No: Headaches Cardiovascular: No: Chest Pain or Discomfort Respiratory: Positive: Shortness of Breath Gastrointestinal: No: Abdominal Pain Genitourinary: No: Dysuria Musculoskeletal: No: Pain Skin: No Rash Neurologic: No: Weakness Psychiatric: No: Depression Endocrine: No: Polydipsia Hematologic/Lymphatic: No: Easy Bruising Physical Exam Narrative GENERAL: Well-nourished, well-developed patient. SKIN: Focused skin assessment warm/dry. HEAD: Normocephalic. EYES: No scleral icterus. No injection or drainage. NECK: Supple, trachea midline. No JVD or lymphadenopathy. CARDIOVASCULAR: Regular rate and rhythm without murmurs, gallops, or rubs. RESPIRATORY: Patient had marked decrease in breath sounds bilaterally. Mild expiratory wheezes. GASTROINTESTINAL: Abdomen soft, non-tender, nondistended. MUSCULOSKELETAL: No cyanosis. Patient had +1 to +2 pitting edema lower extremity. No calf tenderness. Negative Homans sign. BACK: Nontender without obvious deformity. No CVA tenderness. Neurologic exam: Patient's awake and alert oriented 3. No obvious focal neurological deficit. Data Data Last Documented VS Vital Signs Date Time Temp Pulse Resp B/P (MAP) Pulse Ox O2 Delivery O2 Flow Rate FiO2 07/17/17 15:28 97.9 67 18 140/75 (96) 92 Nasal Cannula 2.00 Orders Orders Electrocardiogram (07/17/17 15:21) Complete Blood Count With Diff (07/17/17 15:21) Comprehensive Metabolic Panel (07/17/17 15:21) B-Type Natriuretic Peptide (07/17/17 15:21) Prothrombin Time / Inr (Pt) (07/17/17 15:21) Act Partial Throm Time (Ptt) (07/17/17 15:21) Thyroid Stimulating Hormone (07/17/17 15:21) Chest, Single Ap (07/17/17 15:21) Iv Access Insert/Monitor (07/17/17 15:21) Ecg Monitoring (07/17/17 15:21) Oximetry (07/17/17 15:21) Sodium Chloride 0.9% Flush (Ns Flush) (07/17/17 15:30) Albuterol-Ipratropium Neb (Duoneb Neb) (07/17/17 15:30) Vascular Access Team Consult/P PRN (07/17/17 15:46) Vascular Poc Ultrasound (07/17/17 ) Methylprednisolone So Succ Inj (Solumedr (07/17/17 15:45) Ct Brain W/O Iv Contrast(Rout) (07/17/17 15:51) Labs Laboratory Tests Test 07/17/17 15:35 White Blood Count 8.0 TH/MM3 Red Blood Count 4.32 MIL/MM3 Hemoglobin 13.2 GM/DL Hematocrit 39.0 % Mean Corpuscular Volume 90.2 FL Mean Corpuscular Hemoglobin 30.5 PG Mean Corpuscular Hemoglobin Concent 33.8 % Red Cell Distribution Width 14.0 % Platelet Count 226 TH/MM3 Mean Platelet Volume 7.8 FL Neutrophils (%) (Auto) 85.4 % Lymphocytes (%) (Auto) 3.5 % Monocytes (%) (Auto) 10.6 % Eosinophils (%) (Auto) 0.4 % Basophils (%) (Auto) 0.1 % Neutrophils # (Auto) 6.8 TH/MM3 Lymphocytes # (Auto) 0.3 TH/MM3 Monocytes # (Auto) 0.9 TH/MM3 Eosinophils # (Auto) 0.0 TH/MM3 Basophils # (Auto) 0.0 TH/MM3 CBC Comment DIFF FINAL Differential Comment Prothrombin Time 10.5 SEC Prothromb Time International Ratio 1.0 RATIO Activated Partial Thromboplast Time 26.8 SEC Blood Urea Nitrogen 29 MG/DL Creatinine 0.54 MG/DL Random Glucose 108 MG/DL Total Protein 6.7 GM/DL Albumin 3.1 GM/DL Calcium Level 9.4 MG/DL Alkaline Phosphatase 61 U/L Aspartate Amino Transf (AST/SGOT) 20 U/L Alanine Aminotransferase (ALT/SGPT) 25 U/L Total Bilirubin 0.3 MG/DL Sodium Level 130 MEQ/L Potassium Level 4.2 MEQ/L Chloride Level 87 MEQ/L Carbon Dioxide Level 37.9 MEQ/L Anion Gap 5 MEQ/L Estimat Glomerular Filtration Rate 111 ML/MIN B-Type Natriuretic Peptide 81 PG/ML Thyroid Stimulating Hormone 3rd Gen 0.299 uIU/ML MDM Medical Decision Making Medical Screen Exam Complete: Yes Emergency Medical Condition: Yes Interpretation(s) Last Impressions Head CT 07/17/17 1551 Signed Impressions: Service Date/Time: June 16:13 - CONCLUSION: 1. No acute intracranial abnormality. Angelito Boyd MD Chest X-Ray 07/17/17 1521 Signed Impressions: Service Date/Time: June 15:40 - CONCLUSION: 1. Hyperinflation suggesting COPD. 2. Focal convexity involving the right cardiophrenic angle. Differential diagnostic considerations include rounded atelectasis versus mass. Short term followup PA and lateral view of the chest suggested. 3. Mild cardiomegaly. Juanito Sierra Jr., MD 1648 PM. CBC within normal limit. Sodium 1:30. Chloride 87. Bicarbonate 37.9. BUN 29. BNP 81. TSH 0.299. Differential Diagnosis Differential diagnosis including acute exacerbation COPD, bronchitis, pneumonia , CHF. Narrative Course 72-year-old female with shortness of breath. History of COPD on home O2. Patient also had transient blurring vision on the left eye today. Patient also complained generalized malaise and weakness especially lower extremity. Albuterol Atrovent unit dose treatment 3. Solu-Medrol 125 mg IV. Lasix 20 mg IV. Diagnosis Primary Impression: COPD with acute exacerbation Additional Impression: Dependent edema Admitting Information Admitting Physician Requests: Admit Jorge A Rush MD Jul 17, 2017 16:05
--- NOTE | 2017-07-17 16:17 | RADRPT ---
EXAM DATE/TIME: 07/17/2017 15:40 [facility] COMPARISON: CHEST SINGLE AP, June 18, 2017, 19:39. INDICATIONS : Shortness of breath. MEDICAL HISTORY : Chronic obstructive pulmonary disease. Ashtma. SURGICAL HISTORY : None. ENCOUNTER: Initial ACUITY: 3 days PAIN SCORE: 0/10 LOCATION: Bilateral chest FINDINGS: A single view of the chest demonstrates the lungs to be symmetrically aerated without evidence of inf iltrate or effusion. The lungs are hyperinflated bilaterally. There is a focal convexity involving th e right cardiophrenic angle. This is a new finding. Heart is mildly enlarged. Osseous structures are intact. CONCLUSION: 1. Hyperinflation suggesting COPD. 2. Focal convexity involving the right cardiophrenic angle. Differential diagnostic considerations in clude rounded atelectasis versus mass. Short term followup PA and lateral view of the chest suggested . 3. Mild cardiomegaly. Juanito Sierra Jr., MD on July 17, 2017 at 16:13 Board Certified Radiologist. This report was verified electronically.
[2017-07-17 16:24] LABS: APTT (PATIENT) 26.8 SEC (24.3-30.1); PROTHROMBIN TIME - PATIENT 10.5 SEC (9.8-11.6)
[2017-07-17 16:26] LABS: ALT (GPT) 25 U/L (10-53); ANION GAP 5 MEQ/L (5-15); AST (GOT) 20 U/L (15-37); BICARBONATE 37.9 MEQ/L (21.0-32.0); BLOOD UREA NITROGEN 29 MG/DL (7-18); CHLORIDE 87 MEQ/L (98-107); GLOMERULAR FILTRATION RATE 111 ML/MIN (>89); POTASSIUM 4.2 MEQ/L (3.5-5.1); SODIUM (NA) 130 MEQ/L (136-145)
--- NOTE | 2017-07-17 16:34 | RADRPT ---
EXAM DATE/TIME: 07/17/2017 16:13 [facility] COMPARISON: No previous studies available for comparison. INDICATIONS : Altered mental status. RADIATION DOSE: 56.35 CTDIvol (mGy) MEDICAL HISTORY : Hypertension. SURGICAL HISTORY : Appendectomy. ENCOUNTER: Initial ACUITY: 1 day PAIN SCALE: 0/10 LOCATION: cranial TECHNIQUE: Multiple contiguous axial images were obtained of the head. Using automated exposure control and adj ustment of the mA and/or kV according to patient size, radiation dose was kept as low as reasonably a chievable to obtain optimal diagnostic quality images. DICOM format image data is available electro nically for review and comparison. FINDINGS: CEREBRUM: The ventricles are normal for age. No evidence of midline shift, mass lesion, hemorrhage or acute in farction. No extra-axial fluid collections are seen. POSTERIOR FOSSA: The cerebellum and brainstem are intact. The 4th ventricle is midline. The cerebellopontine angle i s unremarkable. EXTRACRANIAL: The visualized portion of the orbits is intact. SKULL: The calvaria is intact. No evidence of skull fracture. CONCLUSION: 1. No acute intracranial abnormality. Angelito Boyd MD on July 17, 2017 at 16:31 Board Certified Radiologist. This report was verified electronically.
[2017-07-17 16:36] LABS: ALKALINE PHOSPHATASE 61 U/L (45-117); TOTAL BILIRUBIN ADULT 0.3 MG/DL (0.2-1.0)
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
[2017-07-17] MEDS ORDERED: SODIUM CHLORIDE 0.9% FLUSH 10 ML FLUSH IV FLUSH PRN (18:15)
[2017-07-17] MEDS ORDERED: RESP: ALBUTEROL 2.5 MG/3 ML NEB (PRN) INH (18:15)
[2017-07-17 18:32] LABS: BLOOD GAS BASE EXCESS 12.9 mmol/L (-2-2); BLOOD GAS CARBOXYHEMOGLOBIN 1.5 % (0-4); BLOOD GAS HCO3 40 mmol/L (22-26); BLOOD GAS METHEMOGLOBIN 0.6 % (0-2); BLOOD GAS O2 HGB SATURATION 91 % (90-100); BLOOD GAS OXYGEN CONTENT 17.2 Vol % (12.0-20.0); BLOOD GAS PCO2 88 mmHg (38-42); BLOOD GAS PO2 66 mmHG (61-120); BLOOD GAS TOTAL HGB 13.4 G/DL (12.0-16.0); CRITICAL VALUE YES; DRAW SITE LT RADIAL; LITER FLOW 3 L/M; NUMBER OF ARTERIAL PUNCTURES 1; OXYGEN DEVICE NASAL CANNULA; STAT YES; TEMP CORR TO 98.6; ULNAR PULSE PRESENT
[2017-07-17] MEDS ORDERED: FUROSEMIDE 20 MG/2 ML VIAL IV PUSH ONE (19:45)
[2017-07-17 20:34] LABS: BLOOD GAS BASE EXCESS 13.6 mmol/L (-2-2); BLOOD GAS CARBOXYHEMOGLOBIN 1.5 % (0-4); BLOOD GAS HCO3 40 mmol/L (22-26); BLOOD GAS METHEMOGLOBIN 0.6 % (0-2); BLOOD GAS O2 HGB SATURATION 91 % (90-100); BLOOD GAS OXYGEN CONTENT 17.1 Vol % (12.0-20.0); BLOOD GAS PCO2 84 mmHg (38-42); BLOOD GAS PO2 66 mmHG (61-120); BLOOD GAS TOTAL HGB 13.3 G/DL (12.0-16.0); TEMP CORR TO 98.6
[2017-07-17 20:36] LABS: CRITICAL VALUE YES; OXYGEN DEVICE BiPAP
[2017-07-17 20:37] LABS: DRAW SITE RT RADIAL; FIO2 40 %; NUMBER OF ARTERIAL PUNCTURES 1; STAT NO; ULNAR PULSE PRESENT; VENT SETTINGS IPAP12/EPAP5
--- NOTE | 2017-07-17 20:51 | MB ---
cc: Clay DE SOUZA M.D. DATE OF CONSULTATION 07/17/17 REASON FOR CONSULTATION Respiratory failure, COPD. HISTORY OF PRESENT ILLNESS This is a 72-year-old white female with a history of chronic obstructive pulmonary disease who has been experiencing shortness of breath, wheezing and increasing leg edema over the past 3-4 days and orthopnea. She became quite short of breath earlier today and thus came to the emergency room. Upon arrival in the emergency room, she was found to be in respiratory distress and was placed on a BiPap mask with an FIO2 of 40%. She also had a head CT done which was showing no acute abnormality. A chest x-ray, however, demonstrated a rounded density in the right cardiophrenic angle which needed further characterization. The patient has been coughing but does not bring up much sputum. Denies any chest pain. ABG's show Hypercapnia.She has previously been on oral steroids and has been placed on home oxygen at two liters. The patient denied chest pain or abdominal pains or vomiting. PAST MEDICAL HISTORY 1. History of chronic kidney disease, 2. History of COPD with chronic bronchitis 3. History of hypertension 4. Dyslipidemia. 5. Appendectomy 6. Surgery on her eyes ALLERGIES PREDNISONE MEDICATIONS 1. ____ two puffs daily 2. Metoprolol 50 mg a day, 3. Norvasc 10 mg daily, 4. Simvastatin 20 mg at bedtime 5. Losartan 100 mg daily, 6. Nebulized albuterol q.i.d. p.r.n. 7. Oxygen two liters. HABITS The patient was a prior smoker, two packs per day for 40-45 years, and quit 13 years ago. No significant alcohol use. FAMILY HISTORY Significant for coronary artery disease in her mother and one sister with breast cancer. Father also had a history of malignancy. REVIEW OF SYSTEMS The patient is on a BiPap mask unable to respond appropriately. However, she denies chest pains. She has had leg swelling. She has joint pains and she denies any headaches, but had some memory loss transiently. She has no anxiety or depression. PHYSICAL EXAMINATION GENERAL: This is an averagely built elderly lady who is pale and mildly dyspneic at rest. VITAL SIGNS: Blood pressure 140/80, pulse is 68, respirations 22, temperature 97.5. HEENT: Head normocephalic. Pupils reactive and equal. Tongue moist. Throat is injected. NECK: Supple. No bruits or thyroid enlargement. CHEST: Distant breath sounds with expiratory wheezes in the upper lung joseph. No crackles. CARDIAC: Heart sounds were regular S1-S2. No murmur. ABDOMEN: Soft, benign without masses, no organomegaly or tenderness. EXTREMITIES: 2+ edema with decreased peripheral pulses. NEUROLOGIC: Reflexes are 1+ with no gross motor deficits. Cranial nerves grossly intact. RECTAL: Exam is deferred. SKIN: No lesions observed. IMPRESSION 1. Hypercapnic Respiratory Failure 2. Emphysema with chronic bronchitis. 3. Right lower lung density, etiology undetermined. 4. Leg edema. 5. History of hypertension 6. Acute Exacerbation of COPD PLAN The patient was placed on BiPap today 12/5 and 35% FIO2. She will be weaned down to nasal cannula at three liters in the a.m. Nebulized DuoNeb solution added q.i.d. Solu-Medrol 60 mg IV q. 6. Chest x-ray PA lateral in the a.m. She was also placed on Zithromax 500 mg IV daily. Repeat CBC and electrolytes to be done in the a.m. and she was given a dose of IV Lasix for her leg edema. Dr. Mcgrath will be available in the a.m. and follow the patient. Thank you for this consultation. MD HILARY House/ /7:31 PM /8:30 PM [facility] HOSPITALBrittnee
[2017-07-17] MEDS: BUDESONIDE-FORMOTEROL 160/4.5 MCG INHALER INH SCH (21:00)
[2017-07-17] MEDS ORDERED: CHLORHEXIDINE GLUCONATE 2 % 1 PACK (2 CLOTHS)(extra cloths) TOPICAL PRN (22:15)
[2017-07-17] MEDS: HEPARIN SODIUM - SQ 10,000 UNITS/ML VIAL SQ SCH (23:09)
[2017-07-17] MEDS: methylPREDNISolone SOD SUCC 125 MG/2 ML VIAL IV PUSH SCH (23:09)
[2017-07-17] MEDS: AZITHROMYCIN INJ 500 MG in SODIUM CHLOR 0.9% 250 ML INJ 250 ML IV SCH (23:10)
[2017-07-17] MEDS: SODIUM CHLORIDE 0.9% FLUSH 10 ML FLUSH IV FLUSH SCH (23:10)
--- NOTE | 2017-07-17 23:15 | EKG ---
Date Performed: 07/17/2017 Time Performed: 15:58:13 PTAGE: 72 years EKG: Sinus rhythm NORMAL ECG Compared to prior tracing no significant change DOCTOR: Buddy Trevino Interpretating Date/Time 07/17/2017 23:14:14
[2017-07-18] VITALS (21 sets, daily range): BP systolic 111–152; BP diastolic 56–100; PULSE 85–119; RESP 14–39; TEMP 98–98.5; O2SAT 89–99
[2017-07-18] MEDS: methylPREDNISolone SOD SUCC 125 MG/2 ML VIAL IV PUSH SCH ×5 (04:00→21:13)
[2017-07-18] MEDS: CHLORHEXIDINE GLUCONATE 2 % 1 PACK (2 CLOTHS)(taper/protocol) TOPICAL SCH (04:00)
[2017-07-18] MEDS: RESP: ALBUTEROL 2.5 MG/IPRATROPIUM 0.5 MG NEB (SCH) INH ×4 (04:43→20:02)
[2017-07-18 05:33] LABS: BLOOD GAS BASE EXCESS 17.2 mmol/L (-2-2); BLOOD GAS CARBOXYHEMOGLOBIN 1.2 % (0-4); BLOOD GAS HCO3 43 mmol/L (22-26); BLOOD GAS METHEMOGLOBIN 1.2 % (0-2); BLOOD GAS O2 HGB SATURATION 92 % (90-100); BLOOD GAS OXYGEN CONTENT 16.9 Vol % (12.0-20.0); BLOOD GAS PCO2 75 mmHg (38-42); BLOOD GAS PO2 69 mmHg (61-120); TEMP CORR TO 98.6
[2017-07-18 05:34] LABS: CRITICAL VALUE YES
[2017-07-18 05:35] LABS: DRAW SITE RT RADIAL; FIO2 40 %; NUMBER OF ARTERIAL PUNCTURES 1; OXYGEN DEVICE BIPAP12/5; STAT NO; ULNAR PULSE PRESENT
[2017-07-18] MEDS: HEPARIN SODIUM - SQ 10,000 UNITS/ML VIAL SQ SCH ×3 (05:39→21:01)
[2017-07-18 06:00] LABS: AUTOMATED NEUTROPHIL # 5.5 TH/MM3 (1.8-7.7); BASOPHIL % 0.1 % (0.0-2.0); HEMATOCRIT 40.7 % (35.0-46.0); HEMO FLAGS DIFF FINAL; LYMPH % 2.8 % (9.0-44.0); LYMPHOCYTE # 0.2 TH/MM3 (1.0-4.8); MEAN CELL VOLUME 91.2 FL (80.0-100.0); MEAN CORPUSCULAR HEMOGLOBIN 30.5 PG (27.0-34.0); MEAN CORPUSCULAR HGB CONC 33.4 % (32.0-36.0); MONO % 2.5 % (0.0-8.0); NEUT % 94.6 % (16.0-70.0); PLATELET COUNT 207 TH/MM3 (150-450); RED BLOOD COUNT 4.46 MIL/MM3 (4.00-5.30); WHITE BLOOD COUNT 5.8 TH/MM3 (4.0-11.0)
[2017-07-18 06:25] LABS: BICARBONATE 41.3 MEQ/L (21.0-32.0)
--- NOTE | 2017-07-18 06:52 | RADRPT ---
EXAM DATE/TIME: 07/18/2017 06:36 [facility] COMPARISON: CHEST SINGLE AP, July 17, 2017, 15:40. INDICATIONS : Shortness of breath MEDICAL HISTORY : Hypertension. SURGICAL HISTORY : Appendectomy. ENCOUNTER: Subsequent ACUITY: 2 days PAIN SCORE: Non-responsive. LOCATION: Bilateral chest FINDINGS: No infiltrate seen. No pleural effusion or pneumothorax. Heart size stable, within normal limits. CONCLUSION: No acute cardiopulmonary disease demonstrated. Edgard Cruz MD on July 18, 2017 at 6:50 Board Certified Radiologist. This report was verified electronically.
[2017-07-18] MEDS: BUDESONIDE-FORMOTEROL 160/4.5 MCG INHALER INH SCH ×2 (08:22→20:57)
[2017-07-18] MEDS: SODIUM CHLORIDE 0.9% FLUSH 10 ML FLUSH IV FLUSH SCH ×2 (08:22→20:57)
[2017-07-18] MEDS ORDERED: NON-FORMULARY DRUG (Fish Oil-Cholecalciferol (Omega-3 Fish Oil/Vitamin) 1 CAP) PO SCH (09:00)
[2017-07-18] MEDS: CHOLECALCIFEROL (VIT D3) 1000 UNIT TAB PO SCH (09:30)
[2017-07-18] MEDS: METOPROLOL TARTRATE 50 MG TAB PO SCH (10:16)
[2017-07-18] MEDS: guaiFENesin E.R. 600 MG TAB PO SCH ×2 (10:16→20:57)
[2017-07-18] MEDS: LOSARTAN 50 MG TAB PO SCH (10:16)
[2017-07-18] MEDS: PRAVASTATIN SOD 40 MG TAB PO SCH (10:16)
--- NOTE | 2017-07-18 14:47 | MB ---
cc: Maurizio CORTEZ DATE OF CONSULTATION: 07/18/2017 HISTORY OF PRESENT ILLNESS Ms. Wild is a 72-year-old white female known to me with COPD. She is a former smoker but quit. She was hospitalized in late May. I had seen her back in the office. Things were stable but she was still quite debilitated. She presented back very confused. Her found her short of breath and confused and called 911. On presentation she was in acute distress and initial arterial blood gas on 3 liters her PO2 was 66 with a pH 7.28 and a PCO2 of 88. She was placed on BiPAP and by early this morning her PCO2 was down a bit to 75 with pH 7.38 and her PO2 was 70. She is currently on 3-4 liters of nasal oxygen with O2 sats in the upper 80s or 90s. Reviewing the history with she and her family at the bedside today, she just progressively declined again. I am sure the confusion was the CO2 rising. Her baseline pulmonary functions were in the range of 30-35% and she has not fully recovered from the previous hospitalization despite the fact she was on bronchodilators and steroids. She had no chest pain, no purulent sputum or hemoptysis, was not aware of any fever. There is no significant prior cardiovascular history but she had begun to develop increasing lower extremity edema which was quite significant on presentation. She diuresed over a liter last night in response to a diuretic. She is feeling better today, just terribly exhausted. LABORATORY White count 5800, hemoglobin 13, platelet count normal. Bicarb was elevated to 40. BUN 23, creatinine 0.8. BNP was 80. IMAGING Chest x-ray on admission revealed an infiltrative change at the right base but this morning's chest x-ray is clear. PHYSICAL EXAMINATION VITAL SIGNS: Temperature 98, pulse 90, respirations 18-22. Sat currently 94%. NECK: Neck veins are flat. LUNGS: Breath sounds are severely diminished throughout with minimal wheezing. No congestion. No basilar rales. HEART: Regular rhythm. No harsh murmur. EXTREMITIES: 1-2+ ankle edema bilateral which is new. No cyanosis or clubbing. No calf tenderness. ASSESSMENT Ms. Wild presented back with worsening hypercarbia, respiratory failure due to underlying COPD. The edema is suggestive that she is developing right heart failure so I have ordered an echocardiogram. She has responded well over night to bronchodilators and steroids and BiPAP. Will continue this therapy, monitor her in the unit today and if things are stable consider transferring to the floor tomorrow. Will use the BiPAP p.r.n. Further diagnostic and/or therapeutic intervention will depend on her ongoing clinical course. I spent considerable time with she and her family today explaining the circumstances and the planned and expected prognosis. R. MD JOANNA Hallman/KAREY /2:02 PM /2:31 PM
--- NOTE | 2017-07-18 18:26 | ECHRPT ---
Indication: COR PULMONALE CONCLUSIONS BP: 138 / 66 HR: Rhythm: MEASUREMENTS (Male / Female) Normal Values Technical Quality: 2D ECHO LV Diastolic Diameter PLAX 3.6 cm 4.2 - 5.9 / 3.9 - 5.3 cm LV Systolic Diameter PLAX 2.8 cm IVS Diastolic Thickness 1.0 cm 0.6 - 1.0 / 0.6 - 0.9 cm LVPW Diastolic Thickness 1.0 cm 0.6 - 1.0 / 0.6 - 0.9 cm LV Relative Wall Thickness 0.5 LVOT Diameter 1.8 cm Aortic Root Diameter 2.9 cm LA Systolic Diameter LX 3.0 cm 3.0 - 4.0 / 2.7 - 3.8 cm M-MODE AV Cusp Separation MM 1.5 cm DOPPLER AV Peak Velocity 113.0 cm/s AV Peak Gradient 5.1 mmHg AV Mean Gradient 3.0 mmHg AV Velocity Time Integral 22.6 cm LVOT Peak Velocity 97.0 cm/s LVOT Peak Gradient 3.8 mmHg LVOT Velocity Time Integral 18.2 cm AV Area Cont Eq vti 2.0 cm AV Area Cont Eq pk 2.2 cm Mitral E Point Velocity 78.0 cm/s Mitral A Point Velocity 118.0 cm/s Mitral E to A Ratio 0.7 LV E' Lateral Velocity 7.1 cm/s Mitral E to LV E' Lateral Ratio 11.0 LV E' Septal Velocity 6.4 cm/s Mitral E to LV E' Septal Ratio 12.1 PV Peak Velocity 80.5 cm/s PV Peak Gradient 2.6 mmHg FINDINGS LEFT VENTRICLE Normal left ventricular size. Wall thickness is normal. The left ventricular systolic function is normal with an estimated ejection fraction in the range of 55-60%. RIGHT VENTRICLE Normal right ventricular size and systolic function. LEFT ATRIUM The left atrial size is normal. RIGHT ATRIUM The right atrial size is normal. AORTA Mildly calcified aortic root. MITRAL VALVE Mwvly-ma-goup mitral valve regurgitation. AORTIC VALVE Trileaflet aortic valve. No aortic valve stenosis or regurgitation. TRICUSPID VALVE Structurally normal tricuspid valve. No tricuspid valve stenosis or regurgitation. PULMONARY VALVE No pulmonary valve regurgitation or stenosis. VESSELS The inferior vena cava is normal in size. PERICARDIUM No pericardial effusion. Gaurav Malave MD (Electronically Signed) Final Date:18 July 2017 18:25
[2017-07-18] MEDS: AZITHROMYCIN INJ 500 MG in SODIUM CHLOR 0.9% 250 ML INJ 250 ML IV SCH (20:56)
[2017-07-18] MEDS: ASPIRIN 81 MG CHEW TAB CHEW SCH (21:00)
[2017-07-19] VITALS (15 sets, daily range): BP systolic 105–123; BP diastolic 57–69; PULSE 72–126; RESP 18–37; TEMP 97.2–98.5; O2SAT 92–98
[2017-07-19] MEDS: RESP: ALBUTEROL 2.5 MG/IPRATROPIUM 0.5 MG NEB (SCH) INH ×4 (03:58→21:44)
[2017-07-19] MEDS: CHLORHEXIDINE GLUCONATE 2 % 1 PACK (2 CLOTHS)(taper/protocol) TOPICAL SCH (04:00)
[2017-07-19] MEDS: methylPREDNISolone SOD SUCC 125 MG/2 ML VIAL IV PUSH SCH ×2 (05:11→16:00)
[2017-07-19] MEDS: HEPARIN SODIUM - SQ 10,000 UNITS/ML VIAL SQ SCH ×3 (05:11→21:04)
[2017-07-19 06:26] LABS: AUTOMATED NEUTROPHIL # 11.1 TH/MM3 (1.8-7.7); HEMATOCRIT 37.2 % (35.0-46.0); HEMO FLAGS DIFF FINAL; LYMPHOCYTE # 0.2 TH/MM3 (1.0-4.8); MEAN CORPUSCULAR HEMOGLOBIN 30.8 PG (27.0-34.0); MEAN CORPUSCULAR HGB CONC 33.8 % (32.0-36.0); MONO % 5.3 % (0.0-8.0); NEUT % 92.7 % (16.0-70.0); PLATELET COUNT 227 TH/MM3 (150-450); RED BLOOD COUNT 4.09 MIL/MM3 (4.00-5.30); RED CELL DISTRIBUTION WIDTH 14.5 % (11.6-17.2)
[2017-07-19 07:12] LABS: ALKALINE PHOSPHATASE 55 U/L (45-117); ALT (GPT) 21 U/L (10-53); ANION GAP 4 MEQ/L (5-15); AST (GOT) 15 U/L (15-37); BICARBONATE 41.2 MEQ/L (21.0-32.0); BLOOD UREA NITROGEN 28 MG/DL (7-18); CHLORIDE 89 MEQ/L (98-107); FREE T4 1.28 NG/DL (0.76-1.46); GLOMERULAR FILTRATION RATE 65 ML/MIN (>89); MAGNESIUM 1.9 MG/DL (1.5-2.5); POTASSIUM 3.9 MEQ/L (3.5-5.1); SODIUM (NA) 134 MEQ/L (136-145); TOTAL BILIRUBIN ADULT 0.3 MG/DL (0.2-1.0)
[2017-07-19] MEDS: STIOLTO RESPIMAT INH SCH (07:47)
[2017-07-19] MEDS: PRAVASTATIN SOD 40 MG TAB PO SCH (07:47)
[2017-07-19] MEDS: CHOLECALCIFEROL (VIT D3) 1000 UNIT TAB PO SCH (07:48)
[2017-07-19] MEDS: LOSARTAN 50 MG TAB PO SCH (07:48)
[2017-07-19] MEDS: SODIUM CHLORIDE 0.9% FLUSH 10 ML FLUSH IV FLUSH SCH ×2 (07:48→21:01)
[2017-07-19] MEDS: METOPROLOL TARTRATE 50 MG TAB PO SCH (07:48)
[2017-07-19] MEDS: guaiFENesin E.R. 600 MG TAB PO SCH ×2 (07:48→20:59)
[2017-07-19] MEDS: BUDESONIDE-FORMOTEROL 160/4.5 MCG INHALER INH SCH ×2 (07:49→07:56)
--- NOTE | 2017-07-19 09:23 | HHI.PR ---
Subjective Remarks Patient reports her breathing is better. No chest pain. LE edema resolved. Objective Vitals Vital Signs Date Time Temp Pulse Resp B/P (MAP) Pulse Ox O2 Delivery O2 Flow Rate FiO2 07/19/17 06:00 97 07/19/17 04:00 98.3 89 30 113/59 (77) 95 07/19/17 04:00 89 07/19/17 03:55 94 40 07/19/17 02:00 106 07/19/17 00:01 96 07/19/17 00:00 100 07/19/17 00:00 100 32 123/62 (82) 92 07/18/17 22:00 102 07/18/17 20:08 94 Nasal Cannula 2.00 07/18/17 20:00 98.5 95 33 124/62 (82) 92 07/18/17 20:00 95 07/18/17 16:24 94 Nasal Cannula 3.00 07/18/17 16:00 88 07/18/17 16:00 98.1 88 14 122/58 (79) 93 07/18/17 15:00 86 22 133/62 (85) 94 07/18/17 14:00 85 37 126/67 (86) 07/18/17 14:00 85 07/18/17 13:00 90 36 117/62 (80) 96 07/18/17 12:00 90 07/18/17 12:00 98.2 90 19 138/66 (90) 94 07/18/17 11:00 105 39 117/56 (76) 07/18/17 10:00 116 07/18/17 10:00 116 39 122/58 (79) 89 I/O 07/18/17 07/18/17 07/18/17 07/19/17 07/19/17 07/19/17 07:00 15:00 23:00 07:00 15:00 23:00 Intake Total 240 ml 700 ml 0 ml 250 ml Output Total 1125 ml 750 ml 500 ml Balance -885 ml -50 ml -500 ml 250 ml Intake Oral 240 ml 700 ml IV Total 0 ml 250 ml Output Urine Total 1125 ml 750 ml 500 ml # Voids 3 2 # Bowel Movements 0 0 Result Diagram: 07/19/1751907/19/17519 Imaging Last Impressions Chest X-Ray 07/18/17 0600 Signed Impressions: Service Date/Time: Tuesday, July 18, 2017 06:36 - CONCLUSION: No acute cardiopulmonary disease demonstrated. Edgard Cruz MD Head CT 07/17/17 1551 Signed Impressions: Service Date/Time: June 16:13 - CONCLUSION: 1. No acute intracranial abnormality. Angelito Boyd MD Objective Remarks GENERAL: This is a well-nourished, well-developed patient, in no apparent distress. CARDIOVASCULAR: Normal rate and regular rhythm without murmurs, gallops, or rubs. RESPIRATORY: Good respiratory efforts. Movement is fair. Clear to auscultation bilaterally GASTROINTESTINAL: Abdomen soft, non-tender, non-distended. Normal active bowel sounds MUSCULOSKELETAL: Extremities without cyanosis, or edema. NEURO: Alert & Oriented x4 to person, place, time, situation. Moves all ext x4 PSYCH: Appropriate mood and affect. A/P Assessment and Plan 72-year-old female admitted with acute respiratory failure secondary to COPD exacerbation. Acute on chronic hypercapnic respiratory failure secondary to COPD exacerbation. - Singer Songwriter, Dr. Mcgrath following. Symptoms improving. - Start weaning down IV Solu-Medrol. Changed to every 12 hours. Continue breathing treatments. - Change azithromycin to oral. - Wean down oxygen to home dose of 2L Transient memory loss and vision change, resolved - CT of the head negative - Possibly due to hypoxemia Hypertension - Controlled - Resume home dose of Norvasc 10 mg daily, losartan 100 mg daily, metoprolol 50 mg daily - Monitor BP CKD stage III - Creatinine appears below her baseline - Avoid nephrotoxic agents - Monitor kidney function as indicated Dyslipidemia - Resume home statin therapy Bilateral lower extremity edema - Possibly secondary to chronic steroid use versus venous stasis - 2-D echocardiogram unremarkable. DVT prophylaxis - Heparin 5000 units subcutaneous Discharge Planning Transfer to Floor today. Moreno Regan MD Jul 19, 2017 09:23
[2017-07-19] MEDS ORDERED: AZITHROMYCIN 250 MG TAB PO SCH (10:00)
[2017-07-19] MEDS ORDERED: CALCIUM CARBONATE 500 MG CHEWABLE TAB PO PRN (11:00)
--- NOTE | 2017-07-19 11:31 | HHI.PR ---
Subjective Remarks 07/19 Patient is off BIPAP on 2L oxygen with good sats. Afebrile. Objective Vital Signs Vital Signs Date Time Temp Pulse Resp B/P (MAP) Pulse Ox O2 Delivery O2 Flow Rate FiO2 07/19/17 10:00 79 07/19/17 08:00 126 07/19/17 08:00 98.1 126 37 111/69 (83) 93 07/19/17 06:00 97 07/19/17 04:00 98.3 89 30 113/59 (77) 95 07/19/17 04:00 89 07/19/17 03:55 94 40 07/19/17 02:00 106 07/19/17 00:01 96 07/19/17 00:00 100 07/19/17 00:00 100 32 123/62 (82) 92 07/18/17 22:00 102 07/18/17 20:08 94 Nasal Cannula 2.00 07/18/17 20:00 98.5 95 33 124/62 (82) 92 07/18/17 20:00 95 07/18/17 16:24 94 Nasal Cannula 3.00 07/18/17 16:00 88 07/18/17 16:00 98.1 88 14 122/58 (79) 93 07/18/17 15:00 86 22 133/62 (85) 94 07/18/17 14:00 85 37 126/67 (86) 07/18/17 14:00 85 07/18/17 13:00 90 36 117/62 (80) 96 07/18/17 12:00 90 07/18/17 12:00 98.2 90 19 138/66 (90) 94 I/O 07/18/17 07/18/17 07/18/17 07/19/17 07/19/17 07/19/17 07:00 15:00 23:00 07:00 15:00 23:00 Intake Total 240 ml 700 ml 0 ml 250 ml Output Total 1125 ml 750 ml 500 ml Balance -885 ml -50 ml -500 ml 250 ml Intake Oral 240 ml 700 ml IV Total 0 ml 250 ml Output Urine Total 1125 ml 750 ml 500 ml # Voids 3 2 # Bowel Movements 0 0 Result Diagram: 07/19/1751907/19/17519 Other Results Last Impressions Chest X-Ray 07/18/17 0600 Signed Impressions: Service Date/Time: Tuesday, July 18, 2017 06:36 - CONCLUSION: No acute cardiopulmonary disease demonstrated. Edgard Cruz MD Head CT 07/17/17 1551 Signed Impressions: Service Date/Time: June 16:13 - CONCLUSION: 1. No acute intracranial abnormality. Angelito Boyd MD Objective Remarks GENERAL: Patient is 72 yo sitting in bed in [facility] SKIN: Warm and dry. HEAD: Normocephalic. EYES: No scleral icterus. No injection or drainage. NECK: Supple, trachea midline. No JVD or lymphadenopathy. CARDIOVASCULAR: Regular rate and rhythm without murmurs, gallops, or rubs. RESPIRATORY: Breath sounds equal bilaterally. No accessory muscle use. GASTROINTESTINAL: Abdomen soft, non-tender, nondistended. Neuro: Awake , alert. A/P Assessment and Plan 1)Acute on chronic hypercapnic Resp insuff 2)COPD exac 3)Ex smoker 4)Hyponatremia Plan Continue with oxygen keep sat >92% Bronchodilators, solumederol 60mg Q12 NIPPV PRN for resp distress CXR 07/18 showed no acute disease Continue with abx ( Zithromax) Echo showed EF 55-60%, no RV size and systolic function. GI/DVT prophylaxis- on Heparin Sq Continue treatment plan Melissa Kong MD Jul 19, 2017 11:31
[2017-07-19] MEDS: AZITHROMYCIN 250 MG TAB PO SCH (20:59)
[2017-07-19] MEDS: ASPIRIN 81 MG CHEW TAB CHEW SCH (21:00)
[2017-07-20] VITALS (11 sets, daily range): BP systolic 101–117; BP diastolic 50–95; PULSE 82–122; RESP 18–19; TEMP 97.5–98.8; O2SAT 93–97
[2017-07-20] MEDS: CHLORHEXIDINE GLUCONATE 2 % 1 PACK (2 CLOTHS)(taper/protocol) TOPICAL SCH (04:00)
[2017-07-20] MEDS: RESP: ALBUTEROL 2.5 MG/IPRATROPIUM 0.5 MG NEB (SCH) INH ×4 (04:10→21:27)
[2017-07-20] MEDS: HEPARIN SODIUM - SQ 10,000 UNITS/ML VIAL SQ SCH ×3 (06:00→22:00)
[2017-07-20] MEDS: methylPREDNISolone SOD SUCC 125 MG/2 ML VIAL IV PUSH SCH ×3 (07:27→22:04)
[2017-07-20 08:52] LABS: HEMATOCRIT 39.2 % (35.0-46.0); MEAN CELL VOLUME 91.2 FL (80.0-100.0); MEAN CORPUSCULAR HEMOGLOBIN 30.9 PG (27.0-34.0); MEAN CORPUSCULAR HGB CONC 33.9 % (32.0-36.0); PLATELET COUNT 249 TH/MM3 (150-450); RED CELL DISTRIBUTION WIDTH 14.8 % (11.6-17.2); REVIEW FLAG FINAL; WHITE BLOOD COUNT 14.8 TH/MM3 (4.0-11.0)
[2017-07-20] MEDS: STIOLTO RESPIMAT INH SCH (09:00)
[2017-07-20] MEDS: LOSARTAN 50 MG TAB PO SCH (09:00)
[2017-07-20 09:16] LABS: BICARBONATE 34.5 MEQ/L (21.0-32.0); POTASSIUM 3.9 MEQ/L (3.5-5.1)
[2017-07-20] MEDS: PRAVASTATIN SOD 40 MG TAB PO SCH (09:18)
[2017-07-20] MEDS: METOPROLOL TARTRATE 50 MG TAB PO SCH (09:18)
[2017-07-20] MEDS: guaiFENesin E.R. 600 MG TAB PO SCH ×2 (09:18→22:02)
[2017-07-20] MEDS: CHOLECALCIFEROL (VIT D3) 1000 UNIT TAB PO SCH (09:18)
[2017-07-20] MEDS: SODIUM CHLORIDE 0.9% FLUSH 10 ML FLUSH IV FLUSH SCH ×2 (09:19→22:03)
[2017-07-20 09:47] LABS: HEMOGLOBIN A1a 1.1 %; HEMOGLOBIN A1b 1.9 %; HEMOGLOBIN Ao 84.1 %; HEMOGLOBIN LA1C 2.6 %; HEMOGLOBIN P3 5.8 %
--- NOTE | 2017-07-20 10:52 | HHI.PR ---
Subjective Remarks Patient denies any worsening of dyspnea from baseline. Afebrile. On 2L oxygen. Objective Vital Signs Vital Signs Date Time Temp Pulse Resp B/P (MAP) Pulse Ox O2 Delivery O2 Flow Rate FiO2 07/20/17 10:33 93 Nasal Cannula 2.00 07/20/17 10:29 122 07/20/17 08:00 97.6 109 18 117/56 (76) 93 07/20/17 06:47 97.8 110 18 105/95 (98) 95 07/20/17 05:20 Nasal Cannula 2.00 07/20/17 01:00 97.7 84 18 115/58 (77) 97 07/20/17 00:58 95 40 07/19/17 23:00 Bi-Pap 07/19/17 21:48 95 40 07/19/17 21:45 95 Nasal Cannula 2.00 07/19/17 21:17 97.8 101 18 118/59 (78) 95 07/19/17 16:00 97.9 89 19 105/57 (73) 97 07/19/17 14:00 86 07/19/17 12:00 84 07/19/17 12:00 97.2 84 27 117/59 (78) 97 I/O 07/19/17 07/19/17 07/19/17 07/20/17 07/20/17 07/20/17 07:00 15:00 23:00 07:00 15:00 23:00 Intake Total 0 ml 250 ml Output Total 500 ml Balance -500 ml 250 ml IV Total 0 ml 250 ml Output Urine Total 500 ml # Voids 2 2 # Bowel Movements 0 Result Diagram: 07/20/1782407/20/17 08 Other Results Last Impressions Chest X-Ray 07/18/17 0600 Signed Impressions: Service Date/Time: Tuesday, July 18, 2017 06:36 - CONCLUSION: No acute cardiopulmonary disease demonstrated. Edgard Cruz MD Head CT 07/17/17 1551 Signed Impressions: Service Date/Time: June 16:13 - CONCLUSION: 1. No acute intracranial abnormality. Angelito Boyd MD Objective Remarks GENERAL: Patient is 72 yo sitting in bed in [facility] SKIN: Warm and dry. HEAD: Normocephalic. EYES: No scleral icterus. No injection or drainage. NECK: Supple, trachea midline. No JVD or lymphadenopathy. CARDIOVASCULAR: Regular rate and rhythm without murmurs, gallops, or rubs. RESPIRATORY: Breath sounds equal bilaterally. No accessory muscle use. GASTROINTESTINAL: Abdomen soft, non-tender, nondistended. Neuro: Awake , alert. A/P Assessment and Plan 1)Acute on chronic hypercapnic Resp insuff 2)COPD exac- on Home oxygen. 3)Ex smoker 4)Hyponatremia 5)Leukocytosis 6)Mild FELIX Plan Continue with oxygen keep sat >92% Bronchodilators, decrease solumederol 40mg Q12 Incentive spirometry NIPPV PRN for resp distress CXR 07/18 showed no acute disease Continue with abx ( Zithromax) Echo showed EF 55-60%, no RV size and systolic function. GI/DVT prophylaxis- on Heparin Sq Continue treatment plan Melissa Kong MD Jul 20, 2017 10:52
--- NOTE | 2017-07-20 15:38 | HHI.PR ---
Subjective Remarks patient feeling better- up and ambulating patient has home 02 and nebulizers Objective Vitals Vital Signs Date Time Temp Pulse Resp B/P (MAP) Pulse Ox O2 Delivery O2 Flow Rate FiO2 07/20/17 13:15 95 Nasal Cannula 2.00 07/20/17 13:00 97.5 98 19 108/68 (81) 94 07/20/17 10:33 93 Nasal Cannula 2.00 07/20/17 10:29 122 07/20/17 08:00 97.6 109 18 117/56 (76) 93 07/20/17 06:47 97.8 110 18 105/95 (98) 95 07/20/17 05:20 Nasal Cannula 2.00 07/20/17 01:00 97.7 84 18 115/58 (77) 97 07/20/17 00:58 95 40 07/19/17 23:00 Bi-Pap 07/19/17 21:48 95 40 07/19/17 21:45 95 Nasal Cannula 2.00 07/19/17 21:17 97.8 101 18 118/59 (78) 95 07/19/17 16:00 97.9 89 19 105/57 (73) 97 I/O 07/19/17 07/19/17 07/19/17 07/20/17 07/20/17 07/20/17 07:00 15:00 23:00 07:00 15:00 23:00 Intake Total 0 ml 250 ml Output Total 500 ml Balance -500 ml 250 ml IV Total 0 ml 250 ml Output Urine Total 500 ml # Voids 2 2 # Bowel Movements 0 Result Diagram: 07/20/1725 07/20/1725 Imaging Last Impressions Chest X-Ray 07/18/17 0600 Signed Impressions: Service Date/Time: Tuesday, July 18, 2017 06:36 - CONCLUSION: No acute cardiopulmonary disease demonstrated. Edgard Cruz MD Head CT 07/17/17 1551 Signed Impressions: Service Date/Time: June 16:13 - CONCLUSION: 1. No acute intracranial abnormality. Angelito Boyd MD Objective Remarks awake and alert, no acute distress anictric no erythema of the throate lungs- no rales or wheezes regular rhythm abdomen soft, nontender extremities no edema neuro exam- non focal A/P Assessment and Plan 72-year-old female admitted with acute respiratory failure secondary to COPD exacerbation. Acute on chronic hypercapnic respiratory failure secondary to COPD exacerbation. - improved- 02 dependent - Chief Development Officer, Dr. Mcgrath following. - weaning down IV Solu-Medrol - on Zithromax - oxygen to home dose of 2L Transient memory loss and vision change, resolved - CT of the head negative - Possibly due to hypoxemia Hypertension- patient expressed concern about the low BP readings- states usually runs around 110 and DBP 70-80 - d/w her will start her on IVF - decrease Norvasc 5 mg daily, -continue losartan 100 mg daily- review VS- tomorrow- may decrease Cozaar dose, metoprolol 50 mg daily - Monitor BP FELIX on kinza of CKD stage III - gentle fluids BMP in am Dyslipidemia home statin therapy Bilateral lower extremity edema- resolved - Possibly secondary to chronic steroid use versus venous stasis - 2-D echocardiogram unremarkable. DVT prophylaxis - Heparin 5000 units subcutaneous Kimberli Trinh MD Jul 20, 2017 15:38
[2017-07-20] MEDS: SODIUM CHLOR 0.9% 1000 ML INJ 1,000 ML IV SCH (16:00)
[2017-07-20] MEDS ORDERED: amLODIPine BESYLATE 5 MG TAB PO SCH (21:00)
[2017-07-20] MEDS: AZITHROMYCIN 250 MG TAB PO SCH (22:02)
[2017-07-20] MEDS: ASPIRIN 81 MG CHEW TAB CHEW SCH (22:02)
[2017-07-21] VITALS (9 sets, daily range): BP systolic 109–127; BP diastolic 57–62; PULSE 84–108; RESP 16–20; TEMP 97.6–98.8; O2SAT 93–99
[2017-07-21] MEDS: CHLORHEXIDINE GLUCONATE 2 % 1 PACK (2 CLOTHS)(taper/protocol) TOPICAL SCH (02:23)
[2017-07-21] MEDS: HEPARIN SODIUM - SQ 10,000 UNITS/ML VIAL SQ SCH ×3 (02:24→22:16)
[2017-07-21] MEDS: RESP: ALBUTEROL 2.5 MG/IPRATROPIUM 0.5 MG NEB (SCH) INH ×4 (04:08→21:22)
[2017-07-21] MEDS: SODIUM CHLOR 0.9% 1000 ML INJ 1,000 ML IV SCH (05:22)
[2017-07-21] MEDS: guaiFENesin E.R. 600 MG TAB PO SCH ×2 (08:26→22:15)
[2017-07-21] MEDS: CHOLECALCIFEROL (VIT D3) 1000 UNIT TAB PO SCH (08:27)
[2017-07-21] MEDS: METOPROLOL TARTRATE 50 MG TAB PO SCH (08:27)
[2017-07-21] MEDS: PRAVASTATIN SOD 40 MG TAB PO SCH (08:28)
[2017-07-21] MEDS: SODIUM CHLORIDE 0.9% FLUSH 10 ML FLUSH IV FLUSH SCH ×2 (08:31→22:18)
[2017-07-21] MEDS: LOSARTAN 50 MG TAB PO SCH (08:32)
[2017-07-21] MEDS: STIOLTO RESPIMAT INH SCH (09:00)
[2017-07-21] MEDS: methylPREDNISolone SOD SUCC 125 MG/2 ML VIAL IV PUSH SCH ×2 (10:40→22:20)
[2017-07-21 10:41] LABS: BLOOD GAS BASE EXCESS 11.6 mmol/L (-2-2); BLOOD GAS CARBOXYHEMOGLOBIN 1.3 % (0-4); BLOOD GAS HCO3 37 mmol/L (22-26); BLOOD GAS METHEMOGLOBIN 0.9 % (0-2); BLOOD GAS O2 HGB SATURATION 95 % (90-100); BLOOD GAS OXYGEN CONTENT 16.6 Vol % (12.0-20.0); BLOOD GAS PCO2 63 mmHg (38-42); BLOOD GAS PO2 85 mmHg (61-120); BLOOD GAS TOTAL HGB 12.4 G/DL (12.0-16.0); TEMP CORR TO 98.6
[2017-07-21 10:43] LABS: CRITICAL VALUE YES
[2017-07-21 10:44] LABS: DRAW SITE LT RADIAL; LITER FLOW 2 L/M; NUMBER OF ARTERIAL PUNCTURES 1; OXYGEN DEVICE NASAL CANNULA; STAT NO; ULNAR PULSE PRESENT
[2017-07-21 12:43] LABS: BICARBONATE 37.8 MEQ/L (21.0-32.0); POTASSIUM 4.1 MEQ/L (3.5-5.1)
--- NOTE | 2017-07-21 13:12 | HHI.PR ---
Subjective Remarks feeling better we will increase activity per patient on home 02 Objective Vitals Vital Signs Date Time Temp Pulse Resp B/P (MAP) Pulse Ox O2 Delivery O2 Flow Rate FiO2 07/21/17 12:48 97.6 84 17 127/57 (80) 96 07/21/17 10:09 96 Nasal Cannula 2.00 07/21/17 09:25 97.9 90 16 109/60 (76) 96 07/21/17 06:20 97.9 98 18 125/58 (80) 96 07/21/17 04:08 99 40 07/21/17 01:15 98.2 103 18 123/60 (81) 96 07/20/17 22:03 98.8 96 18 115/60 (78) 96 07/20/17 21:43 96 40 07/20/17 20:15 Nasal Cannula 2.00 07/20/17 16:00 97.5 82 19 101/50 (67) 96 07/20/17 15:57 95 Nasal Cannula 2.00 07/20/17 13:15 95 Nasal Cannula 2.00 I/O 07/20/17 07/20/17 07/20/17 07/21/17 07/21/17 07/21/17 07:00 15:00 23:00 07:00 15:00 23:00 Intake Total 60 ml 1000 ml Balance 60 ml 1000 ml Intake Oral 60 ml IV Total 1000 ml # Voids 2 2 Result Diagram: 07/20/17 0825 07/21/17 1112 Imaging Last Impressions Chest X-Ray 07/18/17 0600 Signed Impressions: Service Date/Time: Tuesday, July 18, 2017 06:36 - CONCLUSION: No acute cardiopulmonary disease demonstrated. Edgard Cruz MD Head CT 07/17/17 1551 Signed Impressions: Service Date/Time: June 16:13 - CONCLUSION: 1. No acute intracranial abnormality. Angelito Boyd MD Objective Remarks awake and alert, no acute distress anicteric lungs- no rales or wheezes regular rhythm abdomen soft, nontender extremities no edema neuro exam- non focal A/P Assessment and Plan 72-year-old female admitted with acute respiratory failure secondary to COPD exacerbation. Acute on chronic hypercapnic respiratory failure secondary to COPD exacerbation. - improved- 02 dependent - Real Estate Investor, Dr. Mcgrath following. - change to po Medrol - on Zithromax - oxygen to home dose of 2L Transient memory loss and vision change, resolved - CT of the head negative - Possibly due to hypoxemia Hypertension- patient expressed concern about the low BP readings- states usually runs around 110 and DBP 70-80 - decrease Norvasc 5 mg daily, -continue losartan 100 mg daily- review VS- tomorrow- may decrease Cozaar dose, metoprolol 50 mg daily - Monitor BP FELIX on top of CKD stage III- improved - encouraged po- "drinking" DC IVF Dyslipidemia home statin therapy Bilateral lower extremity edema- resolved - Possibly secondary to chronic steroid use versus venous stasis - 2-D echocardiogram unremarkable. DVT prophylaxis - Heparin 5000 units subcutaneous Increase activity- d/w patient- up and ambulate will ask CM to arrange for home Kimberli Trinh MD Jul 21, 2017 13:12
[2017-07-21] MEDS ORDERED: OXYGENDME NAS.CANULA (13:14)
[2017-07-21] MEDS ORDERED: PILL SPLITTER OTHER PRN (21:00)
[2017-07-21] MEDS: ASPIRIN 81 MG CHEW TAB CHEW SCH (22:15)
[2017-07-21] MEDS: AZITHROMYCIN 250 MG TAB PO SCH (22:15)
[2017-07-22] VITALS: BP 119/58; PULSE 112; RESP 20; TEMP 97.9; O2SAT 95
[2017-07-22 04:00] VITALS: BP 113/59; PULSE 100; RESP 20; TEMP 97.9; O2SAT 96
[2017-07-22] MEDS: CHLORHEXIDINE GLUCONATE 2 % 1 PACK (2 CLOTHS)(taper/protocol) TOPICAL SCH (04:00)
[2017-07-22] MEDS: RESP: ALBUTEROL 2.5 MG/IPRATROPIUM 0.5 MG NEB (SCH) INH ×2 (04:22→10:31)
[2017-07-22] MEDS: HEPARIN SODIUM - SQ 10,000 UNITS/ML VIAL SQ SCH ×2 (06:30→14:00)
[2017-07-22 08:00] VITALS: BP 133/63; PULSE 112; RESP 20; TEMP 97.7; O2SAT 94
[2017-07-22] MEDS ORDERED: amLODIPine BESYLATE 5 MG TAB PO SCH (09:00)
[2017-07-22] MEDS ORDERED: predniSONE 20 MG TAB PO SCH (09:00)
[2017-07-22] MEDS: STIOLTO RESPIMAT INH SCH (09:00)
[2017-07-22] MEDS ORDERED: LOSARTAN 50 MG TAB PO SCH (09:00)
[2017-07-22] MEDS: SODIUM CHLORIDE 0.9% FLUSH 10 ML FLUSH IV FLUSH SCH (09:00)
[2017-07-22] MEDS: CHOLECALCIFEROL (VIT D3) 1000 UNIT TAB PO SCH (09:22)
[2017-07-22] MEDS: METOPROLOL TARTRATE 50 MG TAB PO SCH (09:22)
[2017-07-22] MEDS: guaiFENesin E.R. 600 MG TAB PO SCH (09:22)
[2017-07-22] MEDS: PRAVASTATIN SOD 40 MG TAB PO SCH (09:22)
[2017-07-22 10:31] VITALS: O2SAT 93
[2017-07-22 11:42] VITALS: BP 123/73; PULSE 87; RESP 18; TEMP 98; O2SAT 94
--- NOTE | 2017-07-22 13:56 | HHI.PR ---
Subjective Remarks feeling bettter up and ambulating around d/w her 02 use Objective Vitals Vital Signs Date Time Temp Pulse Resp B/P (MAP) Pulse Ox O2 Delivery O2 Flow Rate FiO2 07/22/17 11:42 98.0 87 18 123/73 (90) 94 07/22/17 10:31 93 Nasal Cannula 2.00 07/22/17 08:00 97.7 112 20 133/63 (86) 94 07/22/17 04:00 97.9 100 20 113/59 (77) 96 07/22/17 00:00 97.9 112 20 119/58 (78) 95 07/21/17 21:24 94 Nasal Cannula 2.00 07/21/17 20:00 97.8 108 20 124/62 (82) 94 07/21/17 16:53 98.8 87 17 123/58 (79) 93 I/O 07/21/17 07/21/17 07/21/17 07/22/17 07/22/17 07/22/17 07:00 15:00 23:00 07:00 15:00 23:00 Intake Total 1000 ml 480 ml Balance 1000 ml 480 ml Intake Oral 480 ml IV Total 1000 ml # Voids 2 10 1 # Bowel Movements 1 Result Diagram: 07/20/17 0825 07/21/17 1112 Imaging feeling better up and ambulated steadily looking forward to going home Objective Remarks awake and alert, no acute distress anicteric lungs- no rales or wheezes regular rhythm abdomen soft, nontender extremities no edema neuro exam- non focal A/P Assessment and Plan 72-year-old female admitted with acute respiratory failure secondary to COPD exacerbation. Acute on chronic hypercapnic respiratory failure secondary to COPD exacerbation. - improved- 02 dependent - Selector Packer, Dr. Mcgrath following. - changed to 16 mg po bid Solumedrol gradual taper as OP - on Zithromax - oxygen to home dose of 2L Transient memory loss and vision change, resolved - CT of the head negative - Possibly due to hypoxemia Hypertension- patient expressed concern about the low BP readings- states usually runs around 110 and DBP 70-80 - decrease Norvasc 5 mg daily, -losartan 50 mg daily metoprolol 50 mg daily - FELIX on top of CKD stage III- improved - encouraged po- "drinking" DC IVF Dyslipidemia home statin therapy Bilateral lower extremity edema- resolved - Possibly secondary to chronic steroid use versus venous stasis - 2-D echocardiogram unremarkable. DVT prophylaxis - Heparin 5000 units subcutaneous Increase activity- d/w patient- up and ambulate DC today= OP ff up with PCP this ff up with Dr. Veloz in 2 weeks Kimberli Trinh MD Jul 22, 2017 13:56
[2017-07-22] MEDS ORDERED: AMLO5 PO (14:02)
[2017-07-22] MEDS ORDERED: COZA50TA PO (14:02)
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
[2017-07-22] MEDS ORDERED: MEDR4TAB PO (14:32)
[2017-07-22] MEDS ORDERED: PROT40TA PO (14:32)
--- NOTE | 2017-07-22 15:29 | MD ---
cc: Maurizio CORTEZ ADMISSION DATE: 07/17/2017 DISCHARGE DATE: [facility] Visit Search.Discharge Date PULMONARY DISCHARGE HISTORY/HOSPITAL COURSE Ms. Wild is a 72-year-old white female whom I have known for about a year with severe COPD. Pulmonary function is in the range of 35%. She was recently hospitalized in May. I had seen her back in the office at which time things were stabilized, but she was very debilitated. She presented back to the emergency room again on 07/17/2017 with increasing shortness of breath, confusion and marked elevation in PCO2 at 88. pH was 7.28 and PO2 was 66; that was on 3 liters nasal cannula. She was admitted for further evaluation and therapy. She was begun on BiPAP aerosolized bronchodilators and antibiotics and did improve rather quickly. Within 24 hours arterial blood gases had improved with a PO2 of 75, pH 7.38 and PCO2 of 75. Arterial blood gas was repeated on 07/21/2017 on 2 liters of oxygen. Her PO2 was 85 with a pH 7.39 and a PCO2 of 63. Yesterday the patient was switched to oral therapy including methylprednisolone because she apparently has an allergy of some sort to prednisone and continued on nebulized aerosol treatments. She received Zithromax while she was in the hospital. The patient slept comfortably without any respiratory difficulty through the night last night off of BiPAP. I spoke to the patient today as well as the hospitalist for discharge. She will go home on nebulized aerosol treatments with albuterol and Atrovent 3-4 times a day, her Stioloto once a day, oxygen at 2 liters and a gradually tapering course of methylprednisolone. I have discussed with her the potential role for BiPAP if she is not recovering after this hospitalization. I have also asked her to continue 2 liters of oxygen continuously at this time until follow-up. The patient has informed me today that she will be following up with Dr. Guan; that appointment is scheduled in 2 weeks. There was also a question on admission of a potential abnormality of the right cardiophrenic angle. Follow-up chest x-ray was recommended which was done on 07/18/2017. That x-ray was clear with nothing abnormal at the right cardiophrenic angle. The patient is being arranged for discharge today, stable but with very severe COPD, and follow-up within [address] Guan. R. MD JOANNA Hallman/KAREY /2:08 PM /3:15 PM
[2017-07-24] MEDS ORDERED: LOSA100T PO (10:18)
[2017-07-24] MEDS ORDERED: POTA-163 PO ×2 (10:18→10:29)
[2017-07-24] MEDS ORDERED: FURO1TAB62 PO ×2 (10:18→10:29)
[2017-07-24] MEDS ORDERED: METO50TA PO (10:18)
[2017-07-24] MEDS ORDERED: NYST1000 SWISH-SWAL (10:52)
== END 2017-07-22 16:11 | disposition home health service (06) | DRG 189 ==
LOC: NEPC 14:50 → NEDA 17:57 → HIMW 21:50 → N05A 07-19 15:47
PROVIDERS: ADMIT Hospitalist; ATTEND Internal Medicine
PROC: 5A09357 Assistance with Respiratory Ventilation, Less than 24 Consecutive Hours, Continuous Positive Airway Pressure (ICD-10-PCS; principal; 2017-07-17)
DX: J96.22 Acute and chronic respiratory failure with hypercapnia (principal); N17.9 Acute kidney failure, unspecified; E87.1 Hypo-osmolality and hyponatremia; J44.1 Chronic obstructive pulmonary disease with (acute) exacerbation; Z99.81 Dependence on supplemental oxygen; N18.3 Chronic kidney disease, stage 3 (moderate); I12.9 Hypertensive chronic kidney disease with stage 1 through stage 4 chronic kidney disease, or unspecified chronic kidney disease; R41.3 Other amnesia; E78.5 Hyperlipidemia, unspecified; R60.0 Localized edema; Z87.891 Personal history of nicotine dependence
CPT/HCPCS: 36600; 70450; 71010; 76937; 80048; 80053; 82805; 83036; 83735; 83880; 84100; 84439; 84443; 85025; 85027; 85610; 85730; 87641; 93005; 93306; 94002; 94003; 94060; 94150; 94640; 94664; 96374; J0456; J1644; J1940; J2930; J7030; J7050; J7509; J7613